=== PATIENT | female | born 1975 | race Caucasian/White ===

== ENCOUNTER 2020-03-27 09:07 | Outpatient (REF) | payer OTHER, SELFPAY ==
[2020-03-27 10:06] LABS: MANUAL DIFF FLAG NO
[2020-03-27 10:27] LABS: Alanine Aminotransferase 12 U/L (0-31); Albumin Level 4.1 g/dL (3.5-5.0); Alkaline Phosphatase 71 U/L (39-117); Anion Gap 11 (12-20); Aspartate Amino Transferase 14 U/L (5-31); Bilirubin Total 0.5 mg/dL (0.0-1.0); Blood Urea Nitrogen 11 mg/dL (9-16); Calcium 9.1 mg/dL (8.4-10.2); Carbon Dioxide 28 mmol/L (22-29); Chloride 103 mmol/L (96-108); Estimated Glomerular Filt Rate > 60; Glucose Fasting 87 mg/dL (60-99); Sodium 137 mmol/L (135-145); Total Protein 7.3 g/dL (6.5-8.0)
[2020-03-27 10:33] LABS: Basophils Absolute Auto 0.1 X10*3/uL (0.0-0.2); Basophils Percent Auto 0.9 % (0-2); Eosinophils Absolute Auto 0.4 X10*3/uL (0.0-0.4); Eosinophils Percent Auto 3.9 % (0-4); Hematocrit 43.3 % (37-47); Hemoglobin 14.1 g/dl (12.0-16.0); Imm Gran Abs Auto 0.06 X10*3/uL (0.00-0.03); Imm Gran Pct Auto 0.6 % (0.0-0.4); Lymphocytes Absolute Auto 3.3 X10*3/uL (1.2-4.9); Lymphocytes Percent Auto 31.8 % (20-40); Mean Corpuscular HGB Conc 32.6 g/dl (31.0-35.0); Mean Corpuscular Hemoglobin 31.1 pg (27.0-33.0); Mean Corpuscular Volume 95.6 fL (80-98); Mean Platelet Volume 10.7 fL (9.4-12.3); Monocytes Percent Auto 9.1 % (2-11); Neutrophils Absolute Auto 5.6 X10*3/uL (2.0-8.3); Neutrophils Percent Auto 53.7 % (45-73); Platelet Count 426 X10*3/uL (160-400); Red Blood Count 4.53 X10*6/uL (4.20-5.50); Red Cell Distribution Width 13.6 % (11.0-16.0); White Blood Count 10.5 X10*3/uL (4.8-10.8)
[2020-03-27 10:50] LABS: Thyroid Stimulating Hormone 26.03 uIU/mL (0.32-4.0)
== END 2020-03-27 09:08 | disposition home or self-care (01) ==
LOC: HO.LAB 09:07
PROVIDERS: PCP Internal Medicine; Visit Provider Internal Medicine
DX: E03.8 Other specified hypothyroidism (principal); F32.9 Major depressive disorder, single episode, unspecified; Z72.0 Tobacco use
CPT/HCPCS: 36415; 80053; 84443; 85025

== ENCOUNTER 2020-06-09 10:13 | Outpatient (REF) | payer OTHER, SELFPAY ==
[2020-06-09 11:28] LABS: Cholesterol 173 mg/dL; HDL Cholesterol 43 mg/dL; LDL Cholesterol Calculated 113 mg/dl; Triglycerides 88 mg/dL
== END 2020-06-09 10:14 | disposition home or self-care (01) ==
LOC: HO.LAB 10:13
PROVIDERS: PCP Internal Medicine; Visit Provider Internal Medicine
DX: Z00.01 Encounter for general adult medical examination with abnormal findings (principal); E03.8 Other specified hypothyroidism; F32.9 Major depressive disorder, single episode, unspecified; Z72.0 Tobacco use
CPT/HCPCS: 36415; 80061; 84443

== ENCOUNTER 2020-11-21 08:01 | Emergency (ER) | payer OTHER, SELFPAY ==
[2020-11-21 08:46] VITALS: BP 145/86; PULSE 103; RESP 14; TEMP 36.6; O2SAT 99; BMI 38.3
--- NOTE | 2020-11-21 09:59 | ED.SKABFB ---
HPI - Skin/Abscess/Foreign Bdy General Chief complaint: Skin/Abscess/Foreign Body Stated complaint: insect bite Time Seen by Provider: 11/21/20 09:57 Source: patient Mode of arrival: ambulatory Limitations: no limitations History of Present Illness HPI narrative: Patient presents to ED for insect bite. Patient states she was bit by insect and have painful area of redness on her arms, posterior aspect of right hand. right posterior back, and left calf. Patient does also having a fever. Patient unaware if it was tick. that bit her. Patient states having the symptoms for a week. Patient then states painful rash on inner lower lip. Patient also states sore throat. Patient states yesterday she tested negative for covid. Related Data Previous Rx's Medication Instructions Recorded cephalexin 500 mg capsule 500 mg PO QID 7 Days #28 cap 11/21/20 doxycycline hyclate 100 mg capsule 100 mg PO BID 10 Days #20 cap 11/21/20 lidocaine HCl 2 % mucosal solution 15 ml MUCOUS MEMBRANE Q6-8H PRN 2 11/21/20 Days #100 ml Allergies Allergy/AdvReac Type Severity Reaction Status Date / Time No Known Allergies Allergy Unverified 01/01/20 16:17 Review of Systems Review of Systems: Yes all other systems are reviewed and are negative Constitutional: Constitutional: Reports as per HPI, Reports no additional constitutional complaints and Reports fever(s) (Once) Eyes: Eyes: Reports as per HPI and Reports no additional eye complaints ENT: Reports system reviewed and no additional complaints, except as documented, Reports as per HPI, Reports mouth lesions and Reports sore throat Cardiovascular: Cardiovascular: Reports as per HPI and Reports no additional cardiovascular complaints Respiratory: Respiratory: Reports as per HPI and Reports no additional respiratory complaints Gastrointestinal: Gastrointestinal: Reports as per HPI and Reports no additional gastrointestinal complaints Musculoskeletal: Musculoskeletal: Reports no additional musculoskeletal complaints and Reports as per HPI Neurologic: Reports system reviewed and no additional complaints, except as documented and Reports as per HPI Psychiatric: Psychiatric: Reports no additional psychiatric complaints and Reports as per HPI [facility] Social History Social History Advance Directives: No Advance Directives Information Provided: No Physical Exam Vital Signs: Vital Signs: Last Vital Signs Temp 97.8 F 11/21/20 08:46 Pulse 103 H 11/21/20 08:46 Resp 14 11/21/20 08:46 BP 145/86 H 11/21/20 08:46 Pulse Ox 99 11/21/20 08:46 Body Mass Index 38.3 Const: General: cooperative, healthy appearing, comfortable, no acute distress, well developed, alert, awake and Physically active Orientation/consciousness: patient oriented x3 HENMT: Head: Yes normal to inspection, Yes No palpable skull fracture present, Yes normocephalic and Yes atraumatic Mouth/tongue images: 1. Positive for canker sores. Negative for lesions on the rest of the oral cavity. negative for crusted vescile lesions Throat: Yes posterior oropharynx normal, Yes tonsils normal and Yes uvula midline Eyes: General: appearance normal, both eyes and all related structures Neck: Neck: Yes normal visual inspection, Yes full ROM, Yes no lymphadenopathy, Yes no meningeal signs, Yes trachea midline, Yes supple and No tender Chest: Chest palpation & inspection: normal inspection of the chest and normal palpation of entire chest wall Resp: Effort & Inspection: normal respiratory effort and able to speak in complete sentences Auscultation: clear to auscultation bilaterally Cardio: Jugular venous distension: no JVD Heart sounds: S1 normal heart sound present and S2 normal heart sound present GI: Inspection: Yes normal to inspection and No abdominal wall ecchymosis Palpation (GI): Soft to palpation, not firm, nontender, no guarding and not rigid : General: No CVA tenderness and Yes no CVA tenderness Back/Spine/Pelvis: Back: no CVA tenderness, No CVA tenderness and No back tenderness Skin: Rashes: rashes noted Full body images: 1. Painful area of redness with blanching. 2. Area of erythema warmth and tenderness. Patient states earlier in the week area was more swollen and fluctuance, but swelling has significantly decreased. 3. Area of erythema/rash/tender on palpation. 4. Area of erythema with tenderness on palpation 5. Area of erythema with tenderness on palpation. Neuro: General: patient oriented x3, gait normal, no meningeal signs and CN's II-XI intact bilaterally Cranial nerves: Yes CN's II-XII intact bilaterally Extrem: Other: All extremities motor/neuro/vascular exam intact. General: Yes normal to inspection and Yes full ROM Psych: Appearance: grossly normal, well kempt and not disheveled Course Course Course Narrative: Patient states she was tested negative yesterday for COVID 19. Patient staying stroke pain will send strep. Unlikely HSV lesions but will send herpes swab. Reevaluation(s) Reevaluation #1: Patient definitely with the antibiotics. Rashes are not clear-cut erythema migrans, but some more circular so will do Lyme test. Will discharge on mouthwash. Time: 10:11 MDM - Skin/Abscess/Foreign Bdy MDM Narrative Medical decision making narrative: Cellulitis/Canker Sores Lab Data Labs: Lab Results 11/21/20 Range/Units 09:56 S. pyogenes GrpA NORRIS Negative (Negative) Discharge Plan Discharge Clinical Impression: Cellulitis, Canker sore Patient Disposition: Home, Self-Care Instructions: Cellulitis (ED), Canker Sores (ED) Additional Instructions: He have cellulitis caused by insect bite. He could use [id number] Benadryl for itchiness. He will need antibiotic for cellulitis. Oral exam indicate canker sores. You will be discharged with mouthwash. You also tested for Lyme disease. Return to the ED for worsening rash, chest pain, shortness of breath, swelling of lips, red streaks, intractable fever, weakness, chills, or any other concerning symptoms. Please follow-up with PCP Prescriptions: New cephalexin 500 mg capsule 500 mg PO QID 7 Days Qty: 28 RF: 0 doxycycline hyclate 100 mg capsule 100 mg PO BID 10 Days Qty: 20 RF: 0 lidocaine HCl 2 % solution 15 ml mucous membrane Q6-8H PRN (Reason: pain) 2 Days Qty: 100 RF: 0 Interventions: ED Discharge Assessment Last Done: 11/21/20 10:25 Discharge Date/Time: 11/21/20 10:25 Print Language: [place]uran
[2020-11-21 10:09] LABS: IDNOW Serial# 9DD0AD1C; Strep A Nucleic Acid Negative (Negative)
[2020-11-22 17:26] LABS: Lyme Abs Screen <0.90 index
== END 2020-11-21 10:25 | disposition home or self-care (01) ==
PROVIDERS: Physician Assistant; Emergency Provider Emergency Medicine Emergency Medical Services; PCP Internal Medicine
DX: K12.0 Recurrent oral aphthae (principal); L03.818 Cellulitis of other sites
CPT/HCPCS: 36415; 86617; 86618; 87255; 87651; 99282; 99283

== ENCOUNTER 2021-03-18 11:14 | Emergency (ER) | payer OTHER, SELFPAY ==
[2021-03-18 12:15] VITALS: BP 127/80; PULSE 83; RESP 18; TEMP 36.8; O2SAT 98; BMI 36.1
--- NOTE | 2021-03-18 12:31 | ED_ITS ---
HPI - Allergic Reaction General Chief complaint: Allergic Reaction Stated complaint: ALLERGIC REACTION TO MEDICATION Time Seen by Provider: 03/18/21 12:20 Source: patient Mode of arrival: ambulatory Limitations: no limitations History of Present Illness HPI narrative: 45-year-old female presenting to the ED with complaints of a rash that started on and worsened today. She reports that she is unsure if this is related to the new antibiotic Bactrim that she was prescribed on Sunday by her PCP for UTI. She reports that a few months ago she was bit by spiders in her house and had similar rash although it resolved. She reports that she was seen here and was not tested for Lyme at that time. She does not recall any tick bites that she is aware of. She denies any fevers, chills, dizziness, chest pain shortness of breath, palpitations, dyspnea on exertion, orthopnea, nausea/ vomiting/ diarrhea constipation, abdominal pain, recent travel or sick contacts or any other symptoms complaints or concerns at this time. MD complaint: allergic reaction and other ( Rash) Onset (ago): day(s) ( 2 days) Exposure: unknown Symptoms: rash Severity: moderate Treatment prior to arrival: none Previous Allergic Reaction History: none Related Data Previous Rx's Medication Instructions Recorded cephalexin 500 mg capsule 500 mg PO QID 7 Days #28 cap 11/21/20 doxycycline hyclate 100 mg capsule 100 mg PO BID 10 Days #20 cap 11/21/20 lidocaine HCl 2 % mucosal solution 15 ml MUCOUS MEMBRANE Q6-8H PRN 2 11/21/20 Days #100 ml doxycycline monohydrate 100 mg 100 mg PO BID 21 Days #42 cap 03/18/21 capsule Allergies Allergy/AdvReac Type Severity Reaction Status Date / Time No Known Allergies Allergy Verified 03/18/21 12:18 Review of Systems Review of Systems: Constitutional : No Fever, No Chills , no body aches, no recent illness Head/Face: No facial swelling, No facial redness ENT/Mouth : No oral/throat swelling, No Hoarseness, No Swallowing Difficulty Eyes: No Eye Pain, No Swelling, No Redness Cardiovascular : No Chest Pain, No SOB, No palpitations Respiratory : No Cough, No Sputum, No Wheezing, No Smoke Exposure, No Dyspnea Gastrointestinal : No Nausea, No Vomiting, No Diarrhea, No abdominal Pain Genitourinary : No Dysuria, No Urinary Frequency, No Hematuria Musculoskeletal : No joint pain, No Myalgias, No Joint Swelling Skin : No Skin Lesions, positive rash Neuro : No Weakness, No Numbness, No Headache, No dizziness, No tingling Psych : No Anxiety/Panic, No Depression Heme/Lymph: No Bruising, No Lymphadenopathy Endocrine : No Polyuria, No Polydipsia Denies changes in lotions or detergents. Denies drainage from rash. Denies any recent sick contacts or recent travel. patient reports starting Bactrim on Sunday this is a new antibiotic for her for UTI. No other new medications or changes in medications other than the Bactrim. Yes all other systems are reviewed and are negative PMFSH Past Medical History Attestation statement: The following information was validated with the patient. Medical History No known health problems Social History Social History Advance Directives: Yes Advance Directives Information Provided: Yes Advance Directives on File: No Patient : No Physical Exam Vital Signs: Vital Signs: Last Vital Signs Temp 98.3 F 03/18/21 12:15 Pulse 83 03/18/21 12:15 Resp 18 03/18/21 12:15 BP 127/80 03/18/21 12:15 Pulse Ox 98 03/18/21 12:15 BMI result Body Mass Index 36.1 vital signs have been reviewed as normal and appeared to be correct. Blood pressure normal. Heart rate normal. Respiration rate normal. Temperature normal. Oxygen saturation normal. Appearance: Alert. Oriented X3. No acute distress. Head: Normal external exam. Normocephalic. Atraumatic. Eyes: PERRLA. EOMI. Conjunctiva and sclera normal. Eyelids normal. ENT: Pharynx normal. Uvula midline. Moist mucous membranes. Neck: Normal inspection. Neck supple. FROM. No adenopathy. No meningeal signs. CVS: Normal heart rate and rhythm. Heart sound normal. Pulses normal throughout. No murmurs/rales/gallops. Respiratory: No respiratory distress. Painless inspiration. Breath sounds normal. No wheezes/rales/rhonchi noted. Chest nontender. No accessory muscle usage noted or decreased air movement noted. Abdomen: Soft and nontender. Bowel sounds normal in all 4 quadrants. No distention noted. No organomegaly noted. No visible injury noted. Back: Full range of motion noted. No rashes/lesion/induration/fluctuance or signs of infection noted. Skin: Skin warm and dry. Normal skin color. Normal skin turgor. Patient noted to have a bull's eye rash consistent with Lyme disease to the right flank area she also has scattered erythema migraines on the right arm. Otherwise no additional lesions/lacerations noted. Extremities: Extremities exhibit normal range of motion. Extremities nontender. Neuro: Oriented X 3. No motor deficit. No sensory deficit. Reflexes normal. Normal steady gait. No focal neuro deficits noted. Vascular: + radial pulses Normal cap refill. No cyanosis noted to upper extremity nails Course Course Course Narrative: 45-year-old female presenting to the ED with complaints of a rash that started on and worsened today. She reports that she is uns ure if this is related to the new antibiotic Bactrim that she was prescribed on Sunday by her PCP for UTI. She reports that a few months ago she was bit by spiders in her house and had similar rash although it resolved. She reports that she was seen here and was not tested for Lyme at that time. She does not recall any tick bites that she is aware of. When I arrived in the room I introduced myself and told the patient that I was told that she was on some type of antibiotic for possible UTI that she started on Sunday and I asked her to show me the rash and she immediately showed me her right flank which shows a bull's-eye rash and she has scattered erythema migraines to the right arm consistent with Lyme disease and I explained to her that that is most likely lyme disease. then she became very upset and very loud and started screaming that she does not have Lyme disease because when she came here a few months ago they told her she did not have Lyme and why would she have Lyme disease when she came in a few months ago for the same presentation and they did an even tested for Lyme and she was very upset about this. I tried to explain to her multiple times that a Lyme titer test does not immediately come out positive although she kept interrupting being very rude and screaming at me therefore I stepped out of the room and told her I would be back when she was calmer and respectful. I went back into the room with July the RN and she immediately started screaming at both myself in July again we were able to calm her down and explained to her that she was actually tested for Lyme I printed out the results and handed to the patient and I explained to her again that it takes a few months for the body to produce a positive results. Therefore at this time will test her for Lyme and DC home with treatment for Lyme and instructions to follow-up with her primary care provider. Patient understands agrees with this plan. MDM - Allergic Reaction Medical Records Attestation: I reviewed the patient's medical records. Lab Data Attestation: I reviewed the patient's lab results. Lab results narrative: Patient had a negative Lyme titer on 11/21/2020 that she thought she did not have. I printed out the results and handed to the patient. Discharge Plan Discharge Clinical Impression: Erythema migrans (Lyme disease) Patient Disposition: Home, Self-Care Instructions: Lyme Disease (ED), Tick Bite (ED) Additional Instructions: you have pending lab results if any are positive you will be contacted. Sometimes he will not come out positive for a Lyme titer until months after you have had the disease therefore this is why you might of had a false negative before and if you have a negative again you might have another false negative due to it usually takes 6 months or longer for you to produce a positive Lyme results. Return if any new or worsening symptoms. Follow up with her primary care provider. Take these antibiotics for 21 days even if you are feeling better. please stay away from the sun as doxycycline can cause skin medellin. Prescriptions: New doxycycline monohydrate 100 mg capsule 100 mg PO BID 21 Days Qty: 42 RF: 0 No Action cephalexin 500 mg capsule 500 mg PO QID 7 Days Qty: 28 RF: 0 doxycycline hyclate 100 mg capsule 100 mg PO BID 10 Days Qty: 20 RF: 0 lidocaine HCl 2 % solution 15 ml mucous membrane Q6-8H PRN (Reason: pain) 2 Days Qty: 100 RF: 0 Referrals: Karen Berrios MD [Primary Care Provider] - 2 days Stand Alone Forms: Work/School Release Print Language: [place]
--- NOTE | 2021-03-18 13:28 | PC.NURSE ---
PT HAS MULTIPLE BULLS EYE SPOTTY PATCHES ALL OVER BODY. SUSPICIOUS OF LYME DISEASE. PT HAD BLOOD DRAW AND WILL BE SENT HOME WITH ABX. PT WAS YELLING AT THIS RN AND LESLY LASSITER WHEN INFORMED OF CONDITION AND SYMPTOMS. PT WAS AGGRESSIVE AND SWEARING AT THIS RN AND LESLY LASSITER. THIS RN SPOKE QUIETLY TO PATIENT LETTING HER KNOW WE ARE HERE TO HELP AND WANT TO GIVE YOU THE BEST INFORMATION WE HAVE TO TREAT YOU. PT DID EVENTUALLY CALM DOWN AND IS AWAITING DISCHARGE PAPERWORK AT THIS TIME.
[2021-03-20 21:02] LABS: Lyme Abs Screen <0.90 index
[2021-03-21 18:46] LABS: A. Phagocytphilium DNA,RT-PCR NOT DETECTED (NOT DETECTED); Babesia Microti DNA, RT-PCR NOT DETECTED (NOT DETECTED); Borrelia Miyamotoi,DNA RT-PCR NOT DETECTED (NOT DETECTED); E.Chaffeensis DNA RT-PCR NOT DETECTED (NOT DETECTED); Lyme(Borrelia ssp)DNA RT-PCR NOT DETECTED (NOT DETECTED); Source-Tick borne disease NOT GIVEN
== END 2021-03-18 13:32 | disposition home or self-care (01) ==
PROVIDERS: Physician Assistant Medical; Emergency Provider Emergency Medicine; PCP Internal Medicine
DX: A69.20 Lyme disease, unspecified (principal)
CPT/HCPCS: 36415; 86617; 86618; 87798; 87801; 99283

== ENCOUNTER 2021-03-20 04:30 | Inpatient (IN) | payer OTHER, SELFPAY ==
[2021-03-20] VITALS (8 sets, daily range): BP systolic 111–145; BP diastolic 60–88; PULSE 77–120; RESP 16–20; TEMP 37.3–37.9; O2SAT 96–100; BMI 37.3
--- NOTE | ~2021-03-20 | XR_ITS ---
EXAMINATION: XR CHEST CLINICAL INFORMATION: Vasculitis COMPARISON: None TECHNIQUE: Frontal view of the chest was obtained. FINDINGS: No significant abnormality is noted involving the heart, lungs, mediastinum, bony thorax or soft tissues. XR/XR chest 1V IMPRESSION: Unremarkable examination.
--- NOTE | 2021-03-20 05:42 | PC.NURSE ---
PT REPORT HAVING RASH ON UPPER ARMS AND LOWER LEGS. SHE IS ALSO REPORTING DISCOMFORT IN HER MOUTH AND LOWER LIP.
--- NOTE | 2021-03-20 07:08 | ED_ITS ---
HPI - General Adult General Chief complaint: General Medical Stated complaint: lyme ?? sores on hand & lips Time Seen by Provider: 03/20/21 07:01 Source: patient Mode of arrival: ambulatory Limitations: no limitations History of Present Illness HPI narrative: pt presented with purpureal rash and mouth ulcer,she was disgnosed in ED 2 Days ago with Lyme and started on doxycicline,getting worse,difficult to eat,denties vomiting,chills has low grade of temp Onset (ago): day(s) (3) Location: mouth, upper extremity and lower extremity Radiation: non-radiation Severity: moderate Quality: burning Pain Consistency: constant Relieving factors: none Exacerbating factors: none Related Data Home Medications Medication Instructions Recorded Confirmed levothyroxine 112 mcg tablet 112 mcg PO DAILY 03/20/21 03/20/21 sulfamethoxazole 800 1 tab PO BID 03/20/21 03/20/21 mg-trimethoprim 160 mg tablet Previous Rx's Medication Instructions Recorded doxycycline hyclate 100 mg capsule 100 mg PO BID 10 Days #20 cap 11/21/20 Allergies Allergy/AdvReac Type Severity Reaction Status Date / Time No Known Allergies Allergy Verified 03/18/21 12:18 Review of Systems Review of Systems: Yes all other systems are reviewed and are negative ENT: Reports system reviewed and no additional complaints, except as documented Cardiovascular: Cardiovascular: Reports no additional cardiovascular complaints Neurologic: Reports system reviewed and no additional complaints, except as documented PMFSH Past Medical History Attestation statement: The following information was validated with the patient. Medical History No known health problems Social History Social History Patient Tobacco Use Status: Current everyday Tobacco user Use of substances other than those prescribed or required for medical reasons: No Advance Directives: No Advance Directives Information Provided: Yes Patient : No Physical Exam Vital Signs: Vital Signs: Last Vital Signs Temp 99.5 F 03/20/21 13:25 Pulse 86 03/20/21 13:25 Resp 16 03/20/21 13:25 BP 118/64 03/20/21 13:25 Pulse Ox 97 03/20/21 13:25 BMI result Body Mass Index 37.3 Const: General: cooperative and awake HENMT: Head: Yes normal to inspection Face and sinus: Yes normal facial exam and Yes ecchymosis Mouth: other (mouth ulcer) Skin: Other: Pt has multiple ecchymotic lesion ,rt arm/rt shoulder,rt flank,rt leg Course Reevaluation(s) Reevaluation #1: remain hemodinamically stable waiting for bed Medical Decision Making MDM Narrative Medical decision making narrative: pt ethiology of rash unclear meds reation is consideration,she is non toxic appearing she has leukocytosis and low grade of temp,Shubham Kali is in the differential but rash not tipical for Shubham Bass,medication reaction could be a possibility as well vasculitis. At this point will admit the pt for OBS hydrate /steroid Lab Data Result diagrams: 03/20/21 07:34 03/20/21 08:01 Labs: Lab Results 03/20/21 03/20/21 03/20/21 Range/Units 07:34 07:34 07:45 WBC 16.8 H (4.8-10.8) X10*3/uL RBC 4.30 (4.20-5.50) X10*6/uL Hgb 13.5 (12.0-16.0) g/dl Hct 40.0 (37.0-47.0) % MCV 93.0 (80.0-98.0) fL MCH 31.4 (27.0-33.0) pg MCHC 33.8 (31.0-35.0) g/dl RDW 13.2 (11.0-16.0) % Plt Count 365 (160-400) X10*3/uL MPV 9.8 (9.4-12.3) fL Immature Gran % (Auto) 0.5 H (0.0-0.4) % Neut % (Auto) 72.1 (45-73) % Lymph % (Auto) 14.0 L (20-40) % [place] % (Auto) 9.2 (2-11) % Eos % (Auto) 3.8 (0-4) % Baso % (Auto) 0.4 (0-2) % Lymph # (Auto) 2.3 (1.2-4.9) X10*3/uL [place] # (Auto) 1.5 H (0.1-1.2) X10*3/uL Eos # (Auto) 0.6 H (0.0-0.4) X10*3/uL Baso # (Auto) 0.1 (0.0-0.2) X10*3/uL Abs Immat Gran (auto) 0.08 H (0.00-0.03) X10*3/uL Absolute Neuts (auto) 12.1 H (2.0-8.3) x10*3/uL Absolute Nucleated RBC 0.000 (0.0-0.012) X10*3/uL Nucleated RBC % (auto) 0.0 (0.0-0.2) /100WBC Smear Tech's Comments VERIFIED ESR 16 (0-20) MM/HR PT (9.9-13.0) SEC INR (0.9-1.1) APTT (24.1-38.0) SEC Sodium (135-145) mmol/L Potassium (3.3-5.1) mmol/L Chloride (96-108) mmol/L Carbon Dioxide (22-29) mmol/L Anion Gap (12-20) BUN (9-16) mg/dL Creatinine (0.5-1.4) mg/dL Estim Creat Clear Calc Estimated GFR Random Glucose (60-115) mg/dL Lactic Acid (0.5-2.0) mmol/L Calcium (8.4-10.2) mg/dL Total Bilirubin (0.0-1.0) mg/dL AST (5-31) U/L ALT (0-31) U/L Alkaline Phosphatase (39-117) U/L C-Reactive Protein (< or = 0.50) mg/dL Total Protein (6.5-8.0) g/dL Albumin (3.5-5.0) g/dL Urine Color Urine Appearance Urine pH (5.0-8.0) Ur Specific [place] (1.005-1.025) Urine Protein (NEG-TRACE) MG/DL Urine Glucose (UA) (NEG) MG/DL Urine Ketones (NEG) MG/DL Urine Blood (NEG) Urine Nitrite (NEG) Ur Leukocyte Esterase (NEG) Urine RBC (0) /HPF Urine WBC (0-4) /HPF Ur Squamous Epith Cells /LPF Urine Bacteria /LPF Urine Test (NEGATIVE) COVID-19 (LANI) Negative (Negative) COVID-19 Clin Com See Note 03/20/21 03/20/21 03/20/21 Range/Units 08:01 08:01 09:17 WBC (4.8-10.8) X10*3/uL RBC (4.20-5.50) X10*6/uL Hgb (12.0-16.0) g/dl Hct (37.0-47.0) % MCV (80.0-98.0) fL MCH (27.0-33.0) pg MCHC (31.0-35.0) g/dl RDW (11.0-16.0) % Plt Count (160-400) X10*3/uL MPV (9.4-12.3) fL Immature Gran % (Auto) (0.0-0.4) % Neut % (Auto) (45-73) % Lymph % (Auto) (20-40) % [place] % (Auto) (2-11) % Eos % (Auto) (0-4) % Baso % (Auto) (0-2) % Lymph # (Auto) (1.2-4.9) X10*3/uL [place] # (Auto) (0.1-1.2) X10*3/uL Eos # (Auto) (0.0-0.4) X10*3/uL Baso # (Auto) (0.0-0.2) X10*3/uL Abs Immat Gran (auto) (0.00-0.03) X10*3/uL Absolute Neuts (auto) (2.0-8.3) x10*3/uL Absolute Nucleated RBC (0.0-0.012) X10*3/uL Nucleated RBC % (auto) (0.0-0.2) /100WBC Smear Tech's Comments ESR (0-20) MM/HR PT 12.9 (9.9-13.0) SEC INR 1.1 (0.9-1.1) APTT 34.1 (24.1-38.0) SEC Sodium 138 (135-145) mmol/L Potassium 4.0 (3.3-5.1) mmol/L Chloride 107 (96-108) mmol/L Carbon Dioxide 22 (22-29) mmol/L Anion Gap 13 (12-20) BUN 7 L (9-16) mg/dL Creatinine 0.81 (0.5-1.4) mg/dL Estim Creat Clear Calc 87.6 Estimated GFR > 60 Random Glucose 99 (60-115) mg/dL Lactic Acid 0.7 (0.5-2.0) mmol/L Calcium 8.8 (8.4-10.2) mg/dL Total Bilirubin 0.4 (0.0-1.0) mg/dL AST 21 D (5-31) U/L ALT 29 (0-31) U/L Alkaline Phosphatase 80 (39-117) U/L C-Reactive Protein 2.74 H (< or = 0.50) mg/dL Total Protein 7.1 (6.5-8.0) g/dL Albumin 3.9 (3.5-5.0) g/dL Urine Color Urine Appearance Urine pH (5.0-8.0) Ur Specific [place] (1.005-1.025) Urine Protein (NEG-TRACE) MG/DL Urine Glucose (UA) (NEG) MG/DL Urine Ketones (NEG) MG/DL Urine Blood (NEG) Urine Nitrite (NEG) Ur Leukocyte Esterase (NEG) Urine RBC (0) /HPF Urine WBC (0-4) /HPF Ur Squamous Epith Cells /LPF Urine Bacteria /LPF Urine Test (NEGATIVE) COVID-19 (LANI) (Negative) COVID-19 Clin Com 03/20/21 03/20/21 Range/Units 10:41 10:41 WBC (4.8-10.8) X10*3/uL RBC (4.20-5.50) X10*6/uL Hgb (12.0-16.0) g/dl Hct (37.0-47.0) % MCV (80.0-98.0) fL MCH (27.0-33.0) pg MCHC (31.0-35.0) g/dl RDW (11.0-16.0) % Plt Count (160-400) X10*3/uL MPV (9.4-12.3) fL Immature Gran % (Auto) (0.0-0.4) % Neut % (Auto) (45-73) % Lymph % (Auto) (20-40) % [place] % (Auto) (2-11) % Eos % (Auto) (0-4) % Baso % (Auto) (0-2) % Lymph # (Auto) (1.2-4.9) X10*3/uL [place] # (Auto) (0.1-1.2) X10*3/uL Eos # (Auto) (0.0-0.4) X10*3/uL Baso # (Auto) (0.0-0.2) X10*3/uL Abs Immat Gran (auto) (0.00-0.03) X10*3/uL Absolute Neuts (auto) (2.0-8.3) x10*3/uL Absolute Nucleated RBC (0.0-0.012) X10*3/uL Nucleated RBC % (auto) (0.0-0.2) /100WBC Smear Tech's Comments ESR (0-20) MM/HR PT (9.9-13.0) SEC INR (0.9-1.1) APTT (24.1-38.0) SEC Sodium (135-145) mmol/L Potassium (3.3-5.1) mmol/L Chloride (96-108) mmol/L Carbon Dioxide (22-29) mmol/L Anion Gap (12-20) BUN (9-16) mg/dL Creatinine (0.5-1.4) mg/dL Estim Creat Clear Calc Estimated GFR Random Glucose (60-115) mg/dL Lactic Acid (0.5-2.0) mmol/L Calcium (8.4-10.2) mg/dL Total Bilirubin (0.0-1.0) mg/dL AST (5-31) U/L ALT (0-31) U/L Alkaline Phosphatase (39-117) U/L C-Reactive Protein (< or = 0.50) mg/dL Total Protein (6.5-8.0) g/dL Albumin (3.5-5.0) g/dL Urine Color YELLOW Urine Appearance CLOUDY Urine pH 6.0 (5.0-8.0) Ur Specific [place] 1.010 (1.005-1.025) Urine Protein 1+ H (NEG-TRACE) MG/DL Urine Glucose (UA) NEG (NEG) MG/DL Urine Ketones 5 (NEG) MG/DL Urine Blood 3+ H (NEG) Urine Nitrite NEG (NEG) Ur Leukocyte Esterase 3+ H (NEG) Urine RBC 30-49 H (0) /HPF Urine WBC TNTC H (0-4) /HPF Ur Squamous Epith Cells 3+ /LPF Urine Bacteria 1+ /LPF Urine Test NEGATIVE (NEGATIVE) COVID-19 (LANI) (Negative) COVID-19 Clin Com Discharge Plan Discharge Clinical Impression: Medication reaction, Leukocytosis, Ecchymosis Patient Disposition: Admitted as Observation
--- NOTE | 2021-03-20 07:39 | PC.NURSE ---
pt alert and oriented, skin appropriate for ethnicity, respirations even and unlabored. pt reports for about one month has these bullseye/rashes all over her body, was started on abx but the rashes are getting worse, they appear with a center of the bullseye dark purple with a large [place] around the smaller that is a special crimes investigator in color, some appear like there about to start peeling, lower lip very swollen with sores and the inside of the mouth also covered in sores, pain full to swallow. sinus tach on the monitor.
[2021-03-20 07:40] LABS: Basophils Absolute Auto 0.1 X10*3/uL (0.0-0.2); Basophils Percent Auto 0.4 % (0-2); Eosinophils Absolute Auto 0.6 X10*3/uL (0.0-0.4); Eosinophils Percent Auto 3.8 % (0-4); Hemoglobin 13.5 g/dl (12.0-16.0); Imm Gran Abs Auto 0.08 X10*3/uL (0.00-0.03); Imm Gran Pct Auto 0.5 % (0.0-0.4); Lymphocytes Absolute Auto 2.3 X10*3/uL (1.2-4.9); MANUAL DIFF FLAG SCAN; Mean Corpuscular HGB Conc 33.8 g/dl (31.0-35.0); Mean Corpuscular Hemoglobin 31.4 pg (27.0-33.0); Mean Platelet Volume 9.8 fL (9.4-12.3); Monocytes Absolute Auto 1.5 X10*3/uL (0.1-1.2); Monocytes Percent Auto 9.2 % (2-11); Neutrophils Absolute Auto 12.1 x10*3/uL (2.0-8.3); Neutrophils Percent Auto 72.1 % (45-73); Platelet Count 365 X10*3/uL (160-400); Red Cell Distribution Width 13.2 % (11.0-16.0); SCAN SMEAR FLAG 1; White Blood Count 16.8 X10*3/uL (4.8-10.8)
[2021-03-20 08:01] LABS: SLIDE REVIEW VERIFIED
[2021-03-20] MEDS: Acetaminophen 325 MG TABLET 650 MG PO ×2 (08:10→21:31)
[2021-03-20 08:15] LABS: COVID-19 Test Negative (Negative)
[2021-03-20 08:17] LABS: Lactic Acid 0.7 mmol/L (0.5-2.0)
[2021-03-20 08:23] LABS: Erythrocyte Sedimentation Rate 16 MM/HR (0-20)
[2021-03-20 08:27] LABS: Alanine Aminotransferase 29 U/L (0-31); Albumin Level 3.9 g/dL (3.5-5.0); Alkaline Phosphatase 80 U/L (39-117); Anion Gap 13 (12-20); Aspartate Amino Transferase 21 U/L (5-31); Bilirubin Total 0.4 mg/dL (0.0-1.0); Blood Urea Nitrogen 7 mg/dL (9-16); C Reactive Protein 2.74 mg/dL (< or = 0.50); Calcium 8.8 mg/dL (8.4-10.2); Carbon Dioxide 22 mmol/L (22-29); Chloride 107 mmol/L (96-108); Creatinine Clr Calc Pharmacy 87.6; Estimated Glomerular Filt Rate > 60; Glucose Random 99 mg/dL (60-115); Sodium 138 mmol/L (135-145); Total Protein 7.1 g/dL (6.5-8.0)
[2021-03-20] MEDS: 0.9 % Sodium Chloride 1,000 ML 999 ML IVCONT ×2 (09:07→10:26)
[2021-03-20 09:27] LABS: INTERNATIONAL NORM RATIO 1.1 (0.9-1.1); Prothrombin Time 12.9 SEC (9.9-13.0)
[2021-03-20 09:30] LABS: Partial Thromboplastin Time 34.1 SEC (24.1-38.0)
--- NOTE | 2021-03-20 10:36 | PC.NURSE ---
@ 1032 DR QUIGLEY REQUEST CALL TO [facility] PT [place] LINE [phone] SHAHRIAR ANSWERS, TAKES PT INFO AND CALL BACK NUMBER THEN ASKS TO SPEAK WITH DR QUIGLEY
[2021-03-20 10:49] LABS: Appearance Urine CLOUDY; Color Urine YELLOW; Glucose Urine UA NEG (NEG); Leukocyte Esterase Urine 3+ (NEG); Nitrite Urine NEG (NEG); UACC Culture Trigger YES; Urine Blood 3+ (NEG); Urine Ketones 5 MG/DL (NEG); Urine Protein 1+ MG/DL (NEG-TRACE)
[2021-03-20 10:50] LABS: UPreg QC Valid YES; Urine Pregnancy NEGATIVE (NEGATIVE)
[2021-03-20 10:55] LABS: RBC Urine 30-49 /HPF (0); Squamous Epithelial Cell Urine 3+ /LPF; UACC CULT YES; WBC Urine TNTC /HPF (0-4)
[2021-03-20 10:56] LABS: Bacteria Urine 1+ /LPF
[2021-03-20] MEDS: Morphine Sulfate 4 MG/ML CARTRIDGE 3 MG IVPUSH (11:03)
[2021-03-20] MEDS: methylPREDNISolone Sod Succ 125 MG/2 ML VIAL IVPUSH (11:03)
--- NOTE | 2021-03-20 11:13 | PC.NURSE ---
@ 11:13AM DR QUIGLEY REQUEST CALL TO [facility] ACCESS LINE FOR DERMATOLOGY CONSULT FOR THIS PT RAJVI ANSWERS AND REQUESTS TO SPEAK WITH DR DANN QUIGLEY TAKES OVER CALL RIGHT AWAY
--- NOTE | 2021-03-20 11:22 | PC.NURSE ---
@11:20AM [facility] OF [facility] ACCESS LINE CALLS US BACK TO SAY THE WEATHERIZATION TECHNICIAN WILL NOT TAKE THE CALL THEY WILL NOT BE THE ONES FOLLOWING UP WITH THIS PT ON D/C DR QUIGLEY AWARE
--- NOTE | 2021-03-20 11:24 | PHA.MEDREC ---
Pharmacy Consult ? Medication Reconciliation Pharmacy has completed the medication reconciliation. Patient is on Bactrim for a UTI and Doxycyline for a tick bite. Reports she no longer takes sertraline. Rosa Carrero, PharmD
--- NOTE | 2021-03-20 12:08 | PC.NURSE ---
pt reports feeling a little better, the sores in mouth are starting to feel better, pain at 7/10
--- NOTE | 2021-03-20 12:35 | P.HPHOSP_ITS ---
History of Present Illness Date of Service: 03/20/21 Chief Complaint: Skin rash, fever 45 years old lady with PMH of hypothyroidism who presents to the hospital complaining of skin rash and fever for the last 2 days. The patient presented to the ER on Sunday after she noticed raised areas of skin rash was discoloration multiple areas in her body. Those rashes were associated with low-grade fever, itching and tenderness. She reports taking Bactrim for a urine infection before the rash appeared. She was prescribed antibiotic of doxycycline in the emergency and discharged home. She came back in this morning with worsening pain, erythema surrounding the rashes associated with lip swelling and tongue pain. Blood test did not show any abnormal values Admitted for observation and evaluation. Review of Systems Review of Systems: Reporting low-grade fever with no reported weakness No chest pain, palpitation No shortness of breath or coughing No abdominal pain, nausea or vomiting No urinary symptoms Multiple areas of rash in her body PMFSH Medical History No known health problems Cognitive capacity: Hypothyroidism Pertinent family history: HTN in mother Social History Patient Tobacco Use Status: Current everyday Tobacco user Use of substances other than those prescribed or required for medical reasons: No Advance Directives: No Advance Directives Information Provided: Yes Patient : No Meds Allergies Allergy/AdvReac Type Severity Reaction Status Date / Time No Known Allergies Allergy Verified 03/18/21 12:18 Active Medications: Current Medications Acetaminophen (Acetaminophen 325 Mg Tablet) 650 mg PO Q6H PRN PRN Reason: Pain, Mild (Pain Scale 1-3) Al Hydroxide/Mg Hydroxide (Magnesium Hydrox/Alum Hydrox 30 Ml Oral.Susp) 30 ml PO Q4H PRN PRN Reason: Heartburn/Nausea Diphenhydramine HCl (Diphenhydramine Hcl 50 Mg/Ml Vial) 25 mg IVPUSH ONCE ONE Stop: 03/20/21 12:29 Diphenhydramine HCl (Diphenhydramine Hcl 50 Mg/Ml Vial) 25 mg IVPUSH Q4H PRN PRN Reason: Itching Enoxaparin Sodium (Enoxaparin Sodium 40 Mg/0.4 Ml Syringe) 40 mg SUBCUT Q24H ADDIE Sodium Chloride (Ns) 1,000 mls @ 100 mls/hr IVCONT .Q10H ADDIE Stop: 03/20/21 22:00 Levothyroxine Sodium (Levothyroxine Sodium 112 Mcg Tablet) 112 mcg PO DAILY [facility] Lidocaine/Diphenhydr/Alum/Mg/Simeth (Mag&Al/Sim/Diphenhyd/Lidocaine 10 Ml Oral.Susp) 10 ml PO Q6H ADDIE; Protocol Loratadine (Loratadine 10 Mg Tablet) 10 mg PO DAILY [facility] Ondansetron HCl (Ondansetron Hcl 4 Mg/2 Ml Vial) 4 mg IVPUSH Q8H PRN PRN Reason: Nausea and Vomiting Pharmacy Consult (Consult Rx Perform Med Rec) 1 each MISCELLANE ONCE PRN PRN Reason: Consult order Prednisone (Prednisone 20 Mg Tablet) 20 mg PO DAILY [facility] Sodium Chloride (0.9 % Sodium Chloride Flush 3 Ml Syringe) 3 ml IVFLUSH QSHIFT [facility] Home Medications Medication Instructions Recorded Confirmed Last Taken Type levothyroxine 112 mcg tablet 112 mcg PO DAILY 03/20/21 03/20/21 03/19/21 History sulfamethoxazole 800 1 tab PO BID 03/20/21 03/20/21 03/19/21 History mg-trimethoprim 160 mg tablet Physical Exam Vital Signs and Narrative: Vital Signs: Last Vital Signs Temp 99.5 F 03/20/21 10:37 Pulse 81 03/20/21 12:09 Resp 18 03/20/21 12:09 BP 111/67 03/20/21 12:09 Pulse Ox 97 03/20/21 12:09 BMI result Body Mass Index 37.3 Const: Other: Constitutional : Alert, oriented, not in distress Neck : Normal inspection, Supple Cardiovascular : RRR, S1 S2, no lower extremity edema Respiratory : Good bilateral air entry, no crackles, wheezes or rhonchi Gastrointestinal: soft, lax, Normal bowel sounds, Non tender Skin : Warm, Dry, multiple areas of raised skin Plaques, erythema and mild tenderness noted with superficial scaling in shoulder, wrist, back and left leg Neurological : Alert & oriented x3, No focal deficit Results Labs CBC and Chem 7: 03/20/21 07:34 03/20/21 08:01 Labs: Laboratory Results - last 24 hr 03/20/21 03/20/21 03/20/21 07:34 07:34 07:45 MCV 93.0 MCH 31.4 MCHC 33.8 RDW 13.2 Plt Count 365 MPV 9.8 Immature Gran % (Auto) 0.5 H Neut % (Auto) 72.1 Lymph % (Auto) 14.0 L [place] % (Auto) 9.2 Eos % (Auto) 3.8 Baso % (Auto) 0.4 Lymph # (Auto) 2.3 [place] # (Auto) 1.5 H Eos # (Auto) 0.6 H Baso # (Auto) 0.1 Abs Immat Gran (auto) 0.08 H Absolute Neuts (auto) 12.1 H Absolute Nucleated RBC 0.000 Nucleated RBC % (auto) 0.0 Smear Tech's Comments VERIFIED ESR 16 PT INR APTT Anion Gap Estim Creat Clear Calc Estimated GFR Random Glucose Lactic Acid Calcium Total Bilirubin AST ALT Alkaline Phosphatase C-Reactive Protein Total Protein Albumin Urine Color Urine Appearance Urine pH Ur Specific [place] Urine Protein Urine Glucose (UA) Urine Ketones Urine Blood Urine Nitrite Ur Leukocyte Esterase Urine RBC Urine WBC Ur Squamous Epith Cells Urine Bacteria Urine Test COVID-19 (LANI) Negative COVID-19 Clin Com See Note 03/20/21 03/20/21 03/20/21 08:01 08:01 09:17 MCV MCH MCHC RDW Plt Count MPV Immature Gran % (Auto) Neut % (Auto) Lymph % (Auto) [place] % (Auto) Eos % (Auto) Baso % (Auto) Lymph # (Auto) [place] # (Auto) Eos # (Auto) Baso # (Auto) Abs Immat Gran (auto) Absolute Neuts (auto) Absolute Nucleated RBC Nucleated RBC % (auto) Smear Tech's Comments ESR PT 12.9 INR 1.1 APTT 34.1 Anion Gap 13 Estim Creat Clear Calc 87.6 Estimated GFR > 60 Random Glucose 99 Lactic Acid 0.7 Calcium 8.8 Total Bilirubin 0.4 AST 21 D ALT 29 Alkaline Phosphatase 80 C-Reactive Protein 2.74 H Total Protein 7.1 Albumin 3.9 Urine Color Urine Appearance Urine pH Ur Specific [place] Urine Protein Urine Glucose (UA) Urine Ketones Urine Blood Urine Nitrite Ur Leukocyte Esterase Urine RBC Urine WBC Ur Squamous Epith Cells Urine Bacteria Urine Test COVID-19 (LANI) COVID-19 Clin Com 03/20/21 03/20/21 10:41 10:41 MCV MCH MCHC RDW Plt Count MPV Immature Gran % (Auto) Neut % (Auto) Lymph % (Auto) [place] % (Auto) Eos % (Auto) Baso % (Auto) Lymph # (Auto) [place] # (Auto) Eos # (Auto) Baso # (Auto) Abs Immat Gran (auto) Absolute Neuts (auto) Absolute Nucleated RBC Nucleated RBC % (auto) Smear Tech's Comments ESR PT INR APTT Anion Gap Estim Creat Clear Calc Estimated GFR Random Glucose Lactic Acid Calcium Total Bilirubin AST ALT Alkaline Phosphatase C-Reactive Protein Total Protein Albumin Urine Color YELLOW Urine Appearance CLOUDY Urine pH 6.0 Ur Specific [place] 1.010 Urine Protein 1+ H Urine Glucose (UA) NEG Urine Ketones 5 Urine Blood 3+ H Urine Nitrite NEG Ur Leukocyte Esterase 3+ H Urine RBC 30-49 H Urine WBC TNTC H Ur Squamous Epith Cells 3+ Urine Bacteria 1+ Urine Test NEGATIVE COVID-19 (LANI) COVID-19 Clin Com Assessment and Plan (1) Leukocytosis: Status: Acute (2) Skin rash: Status: Acute (3) Swollen lip: Status: Acute (4) Medication reaction: Status: Acute 45 years old lady with PMH of hypothyroidism who presents to the hospital complaining of skin rash and fever for the last 2 days. Leukocytosis Could be reactive or secondary to UTI Will monitor for now Hold on further antibiotics with possible allergic skin reaction under final urine culture Skin rash Recurrent, similar distribution to last November Could be more serious Shubham Kali over others autoimmune diseases Treat as allergic reaction with steroids, H1 blockers Benadryl p.r.n. To get ID evaluation Tongue ulcers Secondary to the reaction, to use magic mouthwash continue to monitor Hypothyroid continue levothyroxine DVT PPX Lovenox Quality Stroke Does the patient have a stroke diagnosis?: No VTE Prior VTE?: No VTE Risk Level:: Medical - moderate - high VTE Device Contraindication: Treatment Not Indicated VTE Drug Contraindication: N/A - Med Ordered
[2021-03-20] MEDS: 0.9 % Sodium Chloride 1,000 ML 100 ML IVCONT (12:58)
[2021-03-20] MEDS: Enoxaparin Sodium 40 MG/0.4 ML SYRINGE SUBCUT (12:58)
[2021-03-20] MEDS: diphenhydrAMINE HCL 50 MG/ML VIAL 25 MG IVPUSH ×2 (12:58→21:32)
[2021-03-20] MEDS: Loratadine 10 MG TABLET PO (12:59)
[2021-03-20] MEDS: Mag&Al/Sim/Diphenhyd/Lidocaine 10 ML ORAL.SUSP PO ×2 (13:41→18:58)
[2021-03-20] MEDS: 0.9 % Sodium Chloride Flush 3 ML SYRINGE IVFLUSH (15:50)
[2021-03-20] MEDS: methylPREDNISolone Sod Succ 40 MG/ML VIAL 20 MG IVPUSH (21:27)
[2021-03-21] VITALS (9 sets, daily range): BP systolic 99–140; BP diastolic 60–87; PULSE 69–100; RESP 16–20; TEMP 36.2–36.9; O2SAT 96–100
[2021-03-21] MEDS: Mag&Al/Sim/Diphenhyd/Lidocaine 10 ML ORAL.SUSP PO ×4 (01:35→17:36)
[2021-03-21 06:10] LABS: MANUAL DIFF FLAG NO
[2021-03-21 06:33] LABS: Anion Gap 12 (12-20); Blood Urea Nitrogen 7 mg/dL (9-16); Calcium 9.2 mg/dL (8.4-10.2); Carbon Dioxide 22 mmol/L (22-29); Chloride 109 mmol/L (96-108); Creatinine Clr Calc Pharmacy 107.4; Estimated Glomerular Filt Rate > 60; Glucose Random 117 mg/dL (60-115); Potassium 4.4 mmol/L (3.3-5.1); Sodium 139 mmol/L (135-145)
[2021-03-21 06:34] LABS: Basophils Percent Auto 0.1 % (0-2); Hematocrit 38.9 % (37.0-47.0); Hemoglobin 12.8 g/dl (12.0-16.0); Imm Gran Abs Auto 0.08 X10*3/uL (0.00-0.03); Imm Gran Pct Auto 0.6 % (0.0-0.4); Lymphocytes Percent Auto 14.2 % (20-40); Mean Corpuscular HGB Conc 32.9 g/dl (31.0-35.0); Mean Corpuscular Hemoglobin 30.8 pg (27.0-33.0); Mean Corpuscular Volume 93.7 fL (80.0-98.0); Monocytes Absolute Auto 0.9 X10*3/uL (0.1-1.2); Monocytes Percent Auto 6.2 % (2-11); Neutrophils Absolute Auto 11.3 x10*3/uL (2.0-8.3); Neutrophils Percent Auto 78.9 % (45-73); Platelet Count 372 X10*3/uL (160-400); Red Blood Count 4.15 X10*6/uL (4.20-5.50); Red Cell Distribution Width 13.2 % (11.0-16.0); White Blood Count 14.3 X10*3/uL (4.8-10.8)
--- NOTE | 2021-03-21 06:42 | PC.NURSE ---
AWAITING 6AM MEDICATION TO BE DELIVERED BY PHARMACY.
[2021-03-21] MEDS: Levothyroxine Sodium 112 MCG TABLET PO (07:55)
[2021-03-21] MEDS: 0.9 % Sodium Chloride Flush 3 ML SYRINGE IVFLUSH ×2 (07:56→08:57)
[2021-03-21] MEDS: Acetaminophen 325 MG TABLET 650 MG PO (08:00)
[2021-03-21] MEDS: Dextrose 5 % and 0.9 % NaCl 1,000 ML 100 ML IVCONT ×2 (08:55→21:47)
[2021-03-21] MEDS: Ketorolac Tromethamine 30 MG/ML VIAL 15 MG IVPUSH ×2 (08:56→17:35)
[2021-03-21] MEDS: Loratadine 10 MG TABLET PO (08:56)
[2021-03-21] MEDS: diphenhydrAMINE HCL 50 MG/ML VIAL 25 MG IVPUSH (08:56)
[2021-03-21] MEDS: ondansetron HCL 4 MG/2 ML VIAL IVPUSH (08:56)
[2021-03-21] MEDS: methylPREDNISolone Sod Succ 40 MG/ML VIAL 20 MG IVPUSH ×2 (08:57→21:06)
--- NOTE | 2021-03-21 09:10 | PC.NURSE ---
dr. magana at bedside, pt aware of plan of care. pt is admitted to hosp.
--- NOTE | 2021-03-21 09:53 | HO.PM.IMPN ---
Subjective Subjective Date of Service: 03/21/21 Interval History: The patient was seen and evaluated this morning Laying in bed, still complaining of mouth pain and skin lesions Had low grade fever overnight No reported other overnight events Systemic review: low grade fever, chills but denies weakness No chest pain, palpitation No shortness of breath or coughing No abdominal pain, nausea or vomiting No urinary symptoms Still complaining of pain at the skin lesions Physical Exam Vital Signs: Vital Signs: Last Vital Signs Temp 97.9 F 03/21/21 08:38 Pulse 80 03/21/21 08:38 Resp 18 03/21/21 08:38 BP 127/73 03/21/21 08:38 Pulse Ox 99 03/21/21 08:38 BMI result Body Mass Index 37.3 Const: Other: Constitutional : Alert, oriented, not in distress Neck : Normal inspection, Supple Cardiovascular : RRR, S1 S2, no lower extremity edema Respiratory : Good bilateral air entry, no crackles, wheezes or rhonchi Gastrointestinal: soft, lax, Normal bowel sounds, Non tender Skin : Warm, Dry, multiple areas of raised skin whales erythema and mild tenderness noted, wrist, back and left leg Neurological : Alert & oriented x3, No focal deficit Objective Data Active Medications Acetaminophen (Acetaminophen 325 Mg Tablet) 650 mg PO Q6H PRN PRN Reason: Pain, Mild (Pain Scale 1-3) Last Admin: 03/21/21 08:00 Dose: 650 mg Documented by: MARTÍN Al Hydroxide/Mg Hydroxide (Magnesium Hydrox/Alum Hydrox 30 Ml Oral.Susp) 30 ml PO Q4H PRN PRN Reason: Heartburn/Nausea Diphenhydramine HCl (Diphenhydramine Hcl 50 Mg/Ml Vial) 25 mg IVPUSH Q4H PRN PRN Reason: Itching Last Admin: 03/21/21 08:56 Dose: 25 mg Documented by: MARTÍN Enoxaparin Sodium (Enoxaparin Sodium 40 Mg/0.4 Ml Syringe) 40 mg SUBCUT Q24H [facility] Last Admin: 03/20/21 12:58 Dose: 40 mg Documented by: VAHID Dextrose/Sodium Chloride (D5ns) 1,000 mls @ 100 mls/hr IVCONT .Q10H [facility] Last Admin: 03/21/21 08:55 Dose: 100 mls/hr Documented by: MARTÍN Ketorolac Tromethamine (Ketorolac Tromethamine 30 Mg/Ml Vial) 15 mg IVPUSH Q6H PRN PRN Reason: Pain, Severe (Pain Scale 7-10) Last Admin: 03/21/21 08:56 Dose: 15 mg Documented by: MARTÍN Levothyroxine Sodium (Levothyroxine Sodium 112 Mcg Tablet) 112 mcg PO DAILY@0600 [facility] Last Admin: 03/21/21 07:55 Dose: 112 mcg Documented by: MARTÍN Lidocaine/Diphenhydr/Alum/Mg/Simeth (Mag&Al/Sim/Diphenhyd/Lidocaine 10 Ml Oral.Susp) 10 ml PO Q6H [facility]; Protocol Last Admin: 03/21/21 08:56 Dose: 10 ml Documented by: MARTÍN Loratadine (Loratadine 10 Mg Tablet) 10 mg PO DAILY [facility] Last Admin: 03/21/21 08:56 Dose: 10 mg Documented by: MARTÍN Methylprednisolone Sodium Succinate (Methylprednisolone Sod Succ 40 Mg/Ml Vial) 20 mg IVPUSH Q12H [facility] Last Admin: 03/21/21 08:57 Dose: 20 mg Documented by: MARTÍN Ondansetron HCl (Ondansetron Hcl 4 Mg/2 Ml Vial) 4 mg IVPUSH Q8H PRN PRN Reason: Nausea and Vomiting Last Admin: 03/21/21 08:56 Dose: 4 mg Documented by: MARTÍN Pharmacy Consult (Consult Rx Perform Med Rec) 1 each MISCELLANE ONCE PRN PRN Reason: Consult order Sodium Chloride (0.9 % Sodium Chloride Flush 3 Ml Syringe) 3 ml IVFLUSH QSHIFT [facility] Last Admin: 03/21/21 07:56 Dose: 3 ml Documented by: MARTÍN Labs CBC & Chem 7: 03/21/21 05:49 03/21/21 05:49 Labs: Laboratory Results - last 24 hr 03/20/21 03/20/21 03/21/21 10:41 10:41 05:49 MCV 93.7 MCH 30.8 MCHC 32.9 RDW 13.2 Plt Count 372 MPV 10.0 Immature Gran % (Auto) 0.6 H Neut % (Auto) 78.9 H Lymph % (Auto) 14.2 L [place] % (Auto) 6.2 Eos % (Auto) 0.0 Baso % (Auto) 0.1 Lymph # (Auto) 2.0 [place] # (Auto) 0.9 Eos # (Auto) 0.0 Baso # (Auto) 0.0 Abs Immat Gran (auto) 0.08 H Absolute Neuts (auto) 11.3 H Absolute Nucleated RBC 0.000 Nucleated RBC % (auto) 0.0 Anion Gap Estim Creat Clear Calc Estimated GFR Random Glucose Calcium Urine Color YELLOW Urine Appearance CLOUDY Urine pH 6.0 Ur Specific [place] 1.010 Urine Protein 1+ H Urine Glucose (UA) NEG Urine Ketones 5 Urine Blood 3+ H Urine Nitrite NEG Ur Leukocyte Esterase 3+ H Urine RBC 30-49 H Urine WBC TNTC H Ur Squamous Epith Cells 3+ Urine Bacteria 1+ Urine Test NEGATIVE 03/21/21 05:49 MCV MCH MCHC RDW Plt Count MPV Immature Gran % (Auto) Neut % (Auto) Lymph % (Auto) [place] % (Auto) Eos % (Auto) Baso % (Auto) Lymph # (Auto) [place] # (Auto) Eos # (Auto) Baso # (Auto) Abs Immat Gran (auto) Absolute Neuts (auto) Absolute Nucleated RBC Nucleated RBC % (auto) Anion Gap 12 Estim Creat Clear Calc 107.4 Estimated GFR > 60 Random Glucose 117 H Calcium 9.2 Urine Color Urine Appearance Urine pH Ur Specific [place] Urine Protein Urine Glucose (UA) Urine Ketones Urine Blood Urine Nitrite Ur Leukocyte Esterase Urine RBC Urine WBC Ur Squamous Epith Cells Urine Bacteria Urine Test Microbiology Microbiology Results: Microbiology 03/20/21 07:41 Blood Culture - Preliminary Blood - Venous No growth after 24 hours. 03/20/21 07:34 Blood Culture - Preliminary Blood - Venous No growth after 24 hours. Assessment and Plan (1) UTI (urinary tract infection): Status: Acute (2) Leukocytosis: Status: Acute (3) Skin rash: Status: Acute (4) Swollen lip: Status: Acute Assessment and Plan: 45 years old lady with PMH of hypothyroidism who presents to the hospital complaining of skin rash and fever for the last 2 days. Leukocytosis down to 14 Could be reactive or secondary to UTI started on on Abx UTI Pending U.Cx Start Ceftriaxone Skin rash Recurrent, similar distribution to last November stable, no drainage noted Treat as allergic reaction with steroids, H1 blockers Benadryl p.r.n. Started Doxycycline for possible infx To get ID evaluation mouth pain, Tongue ulcers Secondary to the reaction, to use magic mouthwash continue to monitor Hypothyroid continue levothyroxine DVT PPX Lovenox Quality Stroke Does the patient have a stroke diagnosis?: No VTE Prior VTE?: No VTE Risk Level:: Medical - moderate - high VTE Device Contraindication: Treatment Not Indicated VTE Drug Contraindication: N/A - Med Ordered
--- NOTE | 2021-03-21 10:19 | MHC.CM.PN ---
EMR REVIEWED, PT ADMITTED W/? OF LYME DISEASE, PT RECEIVING IV DOXYCYLCLINE, CM MET W/PT WHO IS A&OX4, WORKS [employer] FOR [employer], PT LIVES W/3 CHILDREN, IS INDEPENDENT W/ALL CARE, NO DME OR HOME SERVICES, PT VERIFIES HER PCP BENEDICT RIOS, PT RECEIVED PFIZER VACCINE AND IS AWAITING BOOSTER FROM WORK, PT PROVIDED W/EDUCATION ON HCP AND DECLINES AT THIS TIME. D/C PLAN: HOME SELF-CARE, CAR IN LOT AND PT WILL SELF-TRANSPORT
[2021-03-21] MEDS: Enoxaparin Sodium 40 MG/0.4 ML SYRINGE SUBCUT (13:24)
[2021-03-21] MEDS: cefTRIAXone sodium 1 GM in 0.9 % Sodium Chloride 50 ML IV (13:24)
--- NOTE | 2021-03-21 13:55 | PC.NURSE ---
rn to rn report given to tutu mcgee aware of plan of care for transfer to room 345.
[2021-03-21] MEDS: Doxycycline Hyclate 100 MG in 0.9 % Sodium Chloride 250 ML 166.67 MG IV (15:31)
--- NOTE | 2021-03-21 21:22 | W.PM.IDCN ---
History of Present Illness Data of Consult Service Date: 03/21/21 Requesting physician: Fuad Rao Primary Care Provider: Unknown Physician HPI Reason for consult: skin lesions She presents with weakness and purple areas of brusing on hands and back and flank,one cm They are present for last week and initially she started with dysuria and took Bactrim She felt worse and there are five areas around body ecchymotic She was started on Doxycycline after lesions started Review of Systems Review of Systems: Yes all other systems are reviewed and are negative [facility] Past Medical History Medical History Hypothyroidism No known health problems Family History Family History (Updated 03/23/21 @ 13:15 by Obi Kiryb MD) Sister SLE (systemic lupus erythematosus related syndrome) Family history: reviewed and not pertinent Social History Social History Household Members: Children Housing: House Do you presently have visiting nurse or other home services: No Patient Tobacco Use Status: Current everyday Tobacco user Tobacco use type: Cigarette Years Smoked: 2 service: No Current occupational status: employed Meds Allergies Allergy/AdvReac Type Severity Reaction Status Date / Time No Known Allergies Allergy Verified 03/18/21 12:18 Active Medications: Current Medications Acetaminophen (Acetaminophen 325 Mg Tablet) 650 mg PO Q6H PRN PRN Reason: Pain, Mild (Pain Scale 1-3) Last Admin: 03/21/21 08:00 Dose: 650 mg Documented by: Al Hydroxide/Mg Hydroxide (Magnesium Hydrox/Alum Hydrox 30 Ml Oral.Susp) 30 ml PO Q4H PRN PRN Reason: Heartburn/Nausea Diphenhydramine HCl (Diphenhydramine Hcl 50 Mg/Ml Vial) 25 mg IVPUSH Q4H PRN PRN Reason: Itching Last Admin: 03/21/21 08:56 Dose: 25 mg Documented by: Enoxaparin Sodium (Enoxaparin Sodium 40 Mg/0.4 Ml Syringe) 40 mg SUBCUT Q24H [facility] Last Admin: 03/21/21 13:24 Dose: 40 mg Documented by: Dextrose/Sodium Chloride (D5ns) 1,000 mls @ 100 mls/hr IVCONT .Q10H [facility] Last Admin: 03/21/21 18:33 Dose: Not Given Documented by: Ceftriaxone Sodium 1 gm/ (Sodium Chloride) 50 mls @ 100 mls/hr IV Q24H [facility] Last Infusion: 03/21/21 13:59 Dose: Infused Documented by: Doxycycline Hyclate 100 mg/ (Sodium Chloride) 250 mls @ 166.67 mls/hr IV Q12H [facility] [place] Last Infusion: 03/21/21 17:17 Dose: Infused Documented by: Ketorolac Tromethamine (Ketorolac Tromethamine 30 Mg/Ml Vial) 15 mg IVPUSH Q6H PRN PRN Reason: Pain, Severe (Pain Scale 7-10) Last Admin: 03/21/21 17:35 Dose: 15 mg Documented by: Levothyroxine Sodium (Levothyroxine Sodium 112 Mcg Tablet) 112 mcg PO DAILY@0600 [facility] [place] Last Admin: 03/21/21 07:55 Dose: 112 mcg Documented by: Lidocaine/Diphenhydr/Alum/Mg/Simeth (Mag&Al/Sim/Diphenhyd/Lidocaine 10 Ml Oral.Susp) 10 ml PO Q6H [facility] [place]; Protocol Last Admin: 03/21/21 17:36 Dose: 10 ml Documented by: Loratadine (Loratadine 10 Mg Tablet) 10 mg PO DAILY [facility] [place] Last Admin: 03/21/21 08:56 Dose: 10 mg Documented by: Methylprednisolone Sodium Succinate (Methylprednisolone Sod Succ 40 Mg/Ml Vial) 20 mg IVPUSH Q12H [facility] Last Admin: 03/21/21 21:06 Dose: 20 mg Documented by: Ondansetron HCl (Ondansetron Hcl 4 Mg/2 Ml Vial) 4 mg IVPUSH Q8H PRN PRN Reason: Nausea and Vomiting Last Admin: 03/21/21 08:56 Dose: 4 mg Documented by: Pharmacy Consult (Consult Rx Perform Med Rec) 1 each MISCELLANE ONCE PRN PRN Reason: Consult order Sodium Chloride (0.9 % Sodium Chloride Flush 3 Ml Syringe) 3 ml IVFLUSH QSHIFT [facility] Last Admin: 03/21/21 15:51 Dose: Not Given Documented by: Home Medications Medication Instructions Recorded Confirmed Last Taken Type levothyroxine 112 mcg tablet 112 mcg PO DAILY 03/20/21 03/20/21 03/19/21 History Physical Exam Vital Signs: Vital Signs: Last Vital Signs Temp 98.0 F 03/21/21 19:34 Pulse 77 03/21/21 19:34 Resp 18 03/21/21 19:34 BP 140/76 H 03/21/21 19:34 Pulse Ox 96 03/21/21 19:34 BMI result Body Mass Index 37.3 Eyes: General: appearance normal, both eyes and all related structures Resp: Effort & Inspection: normal respiratory effort Cardio: Rate: regular rate Skin: Other: five or more ecchymoses on body Results Labs CBC & Chem 7: 03/23/21 05:14 03/23/21 05:14 Labs: Short CBC 03/21/21 Range/Units 05:49 WBC 14.3 H (4.8-10.8) X10*3/uL Hgb 12.8 (12.0-16.0) g/dl Hct 38.9 (37.0-47.0) % Plt Count 372 (160-400) X10*3/uL BMP 03/21/21 05:49 Sodium 139 Potassium 4.4 Chloride 109 H Carbon Dioxide 22 BUN 7 L Creatinine 0.66 Calcium 9.2 Microbiology Microbiology Results: Microbiology 03/20/21 Unknown Urine clean catch - Urine casey top Urine Culture - Preliminary Staphylococcus species 03/20/21 07:41 Blood - Venous Blood Culture - Preliminary No growth after 24 hours. 03/20/21 07:34 Blood - Venous Blood Culture - Preliminary No growth after 24 hours. Assessment and Plan (1) Ecchymosis: Status: Acute There is possible drug rash to Bactrim She may have vascultis [place] (2) Swollen lip: Status: Acute Would continue off antibiotics Would consider having Hematology look at bruising Check HIV test.
[2021-03-22] VITALS (7 sets, daily range): BP systolic 109–152; BP diastolic 65–90; PULSE 56–97; RESP 17–18; TEMP 36.2–36.9; O2SAT 96–98
[2021-03-22] MEDS: Doxycycline Hyclate 100 MG in 0.9 % Sodium Chloride 250 ML 166.67 MG IV (00:30)
[2021-03-22] MEDS: Mag&Al/Sim/Diphenhyd/Lidocaine 10 ML ORAL.SUSP PO ×4 (00:31→17:32)
[2021-03-22] MEDS: Ketorolac Tromethamine 30 MG/ML VIAL 15 MG IVPUSH ×2 (00:40→17:33)
[2021-03-22] MEDS: 0.9 % Sodium Chloride Flush 3 ML SYRINGE IVFLUSH ×3 (00:46→20:59)
[2021-03-22 04:16] LABS: HIV Num 1 1.29 S/CO (0.00-0.99)
[2021-03-22 05:15] LABS: HIV AB/AG Nonreactive (Nonreactive); HIV Num 2 0.05 S/CO; HIV Num 3 0.07 S/CO
[2021-03-22 05:44] LABS: Hematocrit 35.9 % (37.0-47.0); Hemoglobin 11.6 g/dl (12.0-16.0); Mean Corpuscular HGB Conc 32.3 g/dl (31.0-35.0); Mean Corpuscular Hemoglobin 30.6 pg (27.0-33.0); Mean Corpuscular Volume 94.7 fL (80.0-98.0); Mean Platelet Volume 10.1 fL (9.4-12.3); Platelet Count 356 X10*3/uL (160-400); Red Blood Count 3.79 X10*6/uL (4.20-5.50); White Blood Count 16.1 X10*3/uL (4.8-10.8)
[2021-03-22] MEDS: Levothyroxine Sodium 112 MCG TABLET PO (05:50)
[2021-03-22 05:57] LABS: Anion Gap 10 (12-20); Blood Urea Nitrogen 8 mg/dL (9-16); Calcium 8.4 mg/dL (8.4-10.2); Carbon Dioxide 23 mmol/L (22-29); Chloride 111 mmol/L (96-108); Creatinine Clr Calc Pharmacy 114.3; Estimated Glomerular Filt Rate > 60; Glucose Random 134 mg/dL (60-115); Sodium 140 mmol/L (135-145)
[2021-03-22] MEDS: methylPREDNISolone Sod Succ 40 MG/ML VIAL 20 MG IVPUSH ×2 (07:47→20:59)
[2021-03-22] MEDS: Loratadine 10 MG TABLET PO (07:48)
--- NOTE | 2021-03-22 10:10 | HO.PM.IMPN ---
Subjective Subjective Date of Service: 03/22/21 Interval History: The patient was seen and evaluated this morning Laying in bed, still complaining of mouth pain and skin lesions Had low grade fever overnight of 100 No reported other overnight events Systemic review: low grade fever, chills but denies weakness No chest pain, palpitation No shortness of breath or coughing No abdominal pain, nausea or vomiting No urinary symptoms Still complaining of pain at the skin lesions Physical Exam Vital Signs: Vital Signs: Last Vital Signs Temp 97.1 F 03/22/21 07:33 Pulse 97 03/22/21 07:33 Resp 18 03/22/21 07:33 BP 123/90 H 03/22/21 07:33 Pulse Ox 97 03/22/21 07:33 BMI result Body Mass Index 37.3 Const: Other: Constitutional : Alert, oriented, not in distress Neck : Normal inspection, Supple Cardiovascular : RRR, S1 S2, no lower extremity edema Respiratory : Good bilateral air entry, no crackles, wheezes or rhonchi Gastrointestinal: soft, lax, Normal bowel sounds, Non tender Skin : Warm, Dry, multiple areas of raised skin whales erythema and mild tenderness noted, wrist, back and left leg with mild tenderness Neurological : Alert & oriented x3, No focal deficit Objective Data Active Medications Acetaminophen (Acetaminophen 325 Mg Tablet) 650 mg PO Q6H PRN PRN Reason: Pain, Mild (Pain Scale 1-3) Last Admin: 03/21/21 08:00 Dose: 650 mg Documented by: MARTÍN Al Hydroxide/Mg Hydroxide (Magnesium Hydrox/Alum Hydrox 30 Ml Oral.Susp) 30 ml PO Q4H PRN PRN Reason: Heartburn/Nausea Diphenhydramine HCl (Diphenhydramine Hcl 50 Mg/Ml Vial) 25 mg IVPUSH Q4H PRN PRN Reason: Itching Last Admin: 03/21/21 08:56 Dose: 25 mg Documented by: MARTÍN Enoxaparin Sodium (Enoxaparin Sodium 40 Mg/0.4 Ml Syringe) 40 mg SUBCUT Q24H [facility] Last Admin: 03/21/21 13:24 Dose: 40 mg Documented by: MARTÍN Ketorolac Tromethamine (Ketorolac Tromethamine 30 Mg/Ml Vial) 15 mg IVPUSH Q6H PRN PRN Reason: Pain, Severe (Pain Scale 7-10) Last Admin: 03/22/21 00:40 Dose: 15 mg Documented by: ELLIS Levothyroxine Sodium (Levothyroxine Sodium 112 Mcg Tablet) 112 mcg PO DAILY@0600 [facility] Last Admin: 03/22/21 05:50 Dose: 112 mcg Documented by: ELLIS Lidocaine/Diphenhydr/Alum/Mg/Simeth (Mag&Al/Sim/Diphenhyd/Lidocaine 10 Ml Oral.Susp) 10 ml PO Q6H [facility]; Protocol Last Admin: 03/22/21 05:50 Dose: 10 ml Documented by: ELLIS Loratadine (Loratadine 10 Mg Tablet) 10 mg PO DAILY [facility] Last Admin: 03/22/21 07:48 Dose: 10 mg Documented by: MARGARITA Methylprednisolone Sodium Succinate (Methylprednisolone Sod Succ 40 Mg/Ml Vial) 20 mg IVPUSH Q12H [facility] Last Admin: 03/22/21 07:47 Dose: 20 mg Documented by: MARGARITA Ondansetron HCl (Ondansetron Hcl 4 Mg/2 Ml Vial) 4 mg IVPUSH Q8H PRN PRN Reason: Nausea and Vomiting Last Admin: 03/21/21 08:56 Dose: 4 mg Documented by: MARTÍN Pharmacy Consult (Consult Rx Perform Med Rec) 1 each MISCELLANE ONCE PRN PRN Reason: Consult order Sodium Chloride (0.9 % Sodium Chloride Flush 3 Ml Syringe) 3 ml IVFLUSH QSHIFT [facility] Last Admin: 03/22/21 07:52 Dose: Not Given Documented by: MARGARITA Non-Admin Reason: IV Running Labs CBC & Chem 7: 03/22/21 05:17 03/22/21 05:17 Labs: Laboratory Results - last 24 hr 03/21/21 03/21/21 03/22/21 14:19 21:47 05:17 MCV 94.7 MCH 30.6 MCHC 32.3 RDW 13.0 Plt Count 356 MPV 10.1 Absolute Nucleated RBC 0.000 Nucleated RBC % (auto) 0.0 Anion Gap Estim Creat Clear Calc Estimated GFR Random Glucose Calcium HIV 1&2 Ab/P24 Ag 4thGn Cancelled Nonreactive 03/22/21 05:17 MCV MCH MCHC RDW Plt Count MPV Absolute Nucleated RBC Nucleated RBC % (auto) Anion Gap 10 L Estim Creat Clear Calc 114.3 Estimated GFR > 60 Random Glucose 134 H Calcium 8.4 D HIV 1&2 Ab/P24 Ag 4thGn Microbiology Microbiology Results: Microbiology 03/20/21 07:41 Blood Culture - Preliminary Blood - Venous No growth after 48 hours. 03/20/21 07:34 Blood Culture - Preliminary Blood - Venous No growth after 48 hours. 03/20/21 Unknown Urine Culture - Preliminary Urine clean catch - Urine casey top Staphylococcus species Assessment and Plan (1) UTI (urinary tract infection): Status: Acute (2) Ecchymosis: Status: Acute (3) Swollen lip: Status: Acute (4) Skin rash: Status: Acute Assessment and Plan: 45 years old lady with PMH of hypothyroidism who presents to the hospital complaining of skin rash and fever for the last 2 days. Leukocytosis Elevated on presentation at 16,000 Could be reactive or secondary to UTI Receiving steroids which might increase the white blood cells UTI U.Cx grwoing 10-50k staph species Continue Ceftriaxone D2 pending final Cx result Skin rash Recurrent, similar distribution to last November stable, no drainage noted Treat as allergic reaction with steroids, H1 blockers Benadryl p.r.n. ID evaluation, DC ABx and get Hematology eval To get Hematology eval mouth pain, Tongue ulcers Secondary to the reaction, to use magic mouthwash continue to monitor Hypothyroid continue levothyroxine DVT PPX Lovenox Quality Stroke Does the patient have a stroke diagnosis?: No VTE Prior VTE?: No VTE Risk Level:: Medical - moderate - high VTE Device Contraindication: Treatment Not Indicated VTE Drug Contraindication: N/A - Med Ordered
--- NOTE | 2021-03-22 11:22 | P.CNHO_ITS ---
Subjective - Subjective Chief complaint: Skin bruising/rash Patient: new to practice Consult date: 03/22/21 Requesting Physician: Dr. Rao Primary Care Provider: Unknown Physician HPI - Consult Narrative Reason for consult: Skin lesions Narrative: Jenae Knox is a 45 year old woman who has developed recurrent skin lesions since November of this year. The 1st lesions appeared on her right wrist, it was slightly painful and tender. Later it involved other parts of her body including trunk and lips. She was tested for Lyme disease and it was negative. She has been on antibiotics doxycycline and Bactrim in the last few months. She was on Bactrim for a UTI. She denies arthralgias or myalgias. Her main problem today is soreness of her lips and mouth. There is no personal or family history of autoimmune disorders. No other complaints such as fever, chills, night sweats or unexplained weight loss. Review of Systems - Constitutional Reports as per HPI, Reports no additional constitutional complaints - ENT Reports mouth lesions, Reports mouth pain - Cardiovascular Reports no additional cardiovascular complaints - Respiratory Reports no additional respiratory complaints - Gastrointestinal Reports no additional gastrointestinal complaints - Neurologic Reports no additional neurologic complaints [facility] Medical History: Medical History (Last Updated 03/22/21 @ 14:35 by Uzma White MD) Hypothyroidism No known health problems Family history: reviewed and not pertinent Social History: Social History (Last Reviewed 03/21/21 @ 21:25 by Mariangel Vincent MD) Living Situation History: Household Members: Children Housing: House Do you presently have visiting nurse or other home services: No Alcohol History Details: Alcohol intake frequency: does not drink Tobacco History: Patient Tobacco Use Status: Current everyday Tobacco Tobacco use type: Cigarette Years Smoked: 2 Occupation Assessmet: service: No Current occupational status: employed Home Medications and Allergies Current Medications: Current Medications Acetaminophen (Acetaminophen 325 Mg Tablet) 650 mg PO Q6H PRN PRN Reason: Pain, Mild (Pain Scale 1-3) Last Admin: 03/21/21 08:00 Dose: 650 mg Documented by: Al Hydroxide/Mg Hydroxide (Magnesium Hydrox/Alum Hydrox 30 Ml Oral.Susp) 30 ml PO Q4H PRN PRN Reason: Heartburn/Nausea Diphenhydramine HCl (Diphenhydramine Hcl 50 Mg/Ml Vial) 25 mg IVPUSH Q4H PRN PRN Reason: Itching Last Admin: 03/21/21 08:56 Dose: 25 mg Documented by: Enoxaparin Sodium (Enoxaparin Sodium 40 Mg/0.4 Ml Syringe) 40 mg SUBCUT Q24H [facility] Last Admin: 03/21/21 13:24 Dose: 40 mg Documented by: Ceftriaxone Sodium 1 gm/ (Sodium Chloride) 50 mls @ 100 mls/hr IV Q24H [facility] Ketorolac Tromethamine (Ketorolac Tromethamine 30 Mg/Ml Vial) 15 mg IVPUSH Q6H PRN PRN Reason: Pain, Severe (Pain Scale 7-10) Last Admin: 03/22/21 00:40 Dose: 15 mg Documented by: Levothyroxine Sodium (Levothyroxine Sodium 112 Mcg Tablet) 112 mcg PO DAILY@0600 [facility] Last Admin: 03/22/21 05:50 Dose: 112 mcg Documented by: Lidocaine/Diphenhydr/Alum/Mg/Simeth (Mag&Al/Sim/Diphenhyd/Lidocaine 10 Ml Oral.Susp) 10 ml PO Q6H [facility]; Protocol Last Admin: 03/22/21 05:50 Dose: 10 ml Documented by: Loratadine (Loratadine 10 Mg Tablet) 10 mg PO DAILY [facility] Last Admin: 03/22/21 07:48 Dose: 10 mg Documented by: Methylprednisolone Sodium Succinate (Methylprednisolone Sod Succ 40 Mg/Ml Vial) 20 mg IVPUSH Q12H [facility] Last Admin: 03/22/21 07:47 Dose: 20 mg Documented by: Ondansetron HCl (Ondansetron Hcl 4 Mg/2 Ml Vial) 4 mg IVPUSH Q8H PRN PRN Reason: Nausea and Vomiting Last Admin: 03/21/21 08:56 Dose: 4 mg Documented by: Pharmacy Consult (Consult Rx Perform Med Rec) 1 each MISCELLANE ONCE PRN PRN Reason: Consult order Sodium Chloride (0.9 % Sodium Chloride Flush 3 Ml Syringe) 3 ml IVFLUSH QSHIFT [facility] Last Admin: 03/22/21 07:52 Dose: Not Given Documented by: Home Medications Medication Instructions Recorded Confirmed Type levothyroxine 112 mcg tablet 112 mcg PO DAILY 03/20/21 03/20/21 History sulfamethoxazole 800 1 tab PO BID 03/20/21 03/20/21 History mg-trimethoprim 160 mg tablet Allergies Allergy/AdvReac Type Severity Reaction Status Date / Time No Known Allergies Allergy Verified 03/18/21 12:18 Physical Exam Vital signs: Vital Signs Temp 97.1 F 03/22/21 07:33 Pulse 97 03/22/21 07:33 Resp 18 03/22/21 07:33 BP 123/90 H 03/22/21 07:33 Pulse Ox 97 03/22/21 07:33 Intake & Output 03/21/21 03/22/21 03/22/21 18:59 06:59 18:59 Intake Total 1540 / 2190 650 / 2190 400 / 400 Output Total 600 / 1075 475 / 1075 Balance 940 / 1115 175 / 1115 400 / 400 Urine Output (Average ml/kg/hr) 0.58 0.46 0.46 Intake: Intake, Oral Amount 240 / 340 100 / 340 Intake, IV Amount 1300 / 1850 550 / 1850 400 / 400 Doxycycline Hyclate 100 mg In 0 250 / 500 250 / 500 .9 % Sodium Chloride 250 ml @ 166.67 mls/hr IV Q12H [facility] Rx#: [id number] cefTRIAXone sodium 1 gm In 0.9 50 / 50 % Sodium Chloride 50 ml @ 100 mls/hr IV Q24H [facility] Rx#: [id number] Dextrose 5 % and 0.9 % NaCl 1, 1000 / 1300 300 / 1300 400 / 400 000 ml @ 100 mls/hr IVCONT . Q10H [facility] Rx#:[id number] Output: Output, Urine Amount 600 / 1075 475 / 1075 Other: Meal Refused No NPO No Breakfast % Eaten nothere Lunch % Eaten not here Dinner % Eaten 50% Urine Bathroom Bathroom Urine Color Straw Yellow Last Bowel Movement 03/20/21 Weight 86.581 kg - Constitutional Present: mild distress, cooperative - Routine HEENT Exam Eye: Present: EOMI Comments: Lesions on tongue and inner lips. - Routine Neck Exam Present: supple. Absent: lymphadenopathy - Routine Respiratory Exam Present: CTAB - Routine Cardiovascular Exam Cardiovascular: Present: S1, S2 - Routine Abdominal Exam Present: normal bowel sounds, soft. Absent: mass, tenderness - Routine Extremities Exam Present: pulses intact. Absent: calf tenderness - Routine Skin Exam Present: erythema, lesions, rash Hem/Onc Consult Result - Labs CBC & Chem 7: 03/22/21 05:17 03/22/21 05:17 Labs: Short CBC 03/22/21 Range/Units 05:17 WBC 16.1 H (4.8-10.8) X10*3/uL Hgb 11.6 L (12.0-16.0) g/dl Hct 35.9 L (37.0-47.0) % Plt Count 356 (160-400) X10*3/uL BMP 03/22/21 05:17 Sodium 140 Potassium 4.0 Chloride 111 H Carbon Dioxide 23 BUN 8 L Creatinine 0.62 Calcium 8.4 D Assessment and Plan Patient Active problem list reviewed?: Yes (1) Skin rash Status: Acute Assessment and plan: 1. This is a 45-year-old woman presenting with ongoing skin rash since November 2020. She has recurrent lesions appearing on different parts of her body, these a predominantly macular, slightly raised erythematous and mildly tender. Some of them appear to be healing and drying out. These first appeared in November 2020 before use of any antibiotics. Her platelet counts and coagulation tests are normal. She does not give any history of easy skin bruising or bleeding. She has neutrophilic leukocytosis with elevated CRP suggestive of inflammation. Certain blood disorders such as leukemias can be associated with similar skin rashes but her blood work does not suggest any acute hematological process at this time. She will need workup for underlying autoimmune disorder/vasculitis. Rheumatology /dermatology consultation, biopsy of skin lesion for diagnosis and further management. I thank you for this consultation. - Time Spent With Patient Time Spent with Patient (in minutes): 20
[2021-03-22] MEDS: Enoxaparin Sodium 40 MG/0.4 ML SYRINGE SUBCUT (12:37)
[2021-03-22] MEDS: cefTRIAXone sodium 1 GM in 0.9 % Sodium Chloride 50 ML IV (12:37)
--- NOTE | 2021-03-22 12:43 | PC.NURSE ---
Skin assessment completed. Patient has dark red patches on right shoulder, right thumb/hand, right lower back and left calf. Sween 24 moisturizing cream applied to prevent dryness and breakdown. No other skin issues noted at this time.
[2021-03-22] MEDS: diphenhydrAMINE HCL 50 MG/ML VIAL 25 MG IVPUSH (17:33)
[2021-03-23] MEDS: Mag&Al/Sim/Diphenhyd/Lidocaine 10 ML ORAL.SUSP PO ×3 (00:36→13:37)
[2021-03-23 03:49] VITALS: BP 118/72; PULSE 65; RESP 18; TEMP 36.7; O2SAT 99
[2021-03-23] MEDS: Levothyroxine Sodium 112 MCG TABLET PO (06:04)
[2021-03-23 06:06] LABS: Hematocrit 39.3 % (37.0-47.0); Hemoglobin 12.8 g/dl (12.0-16.0); Mean Corpuscular HGB Conc 32.6 g/dl (31.0-35.0); Mean Corpuscular Volume 95.2 fL (80.0-98.0); Mean Platelet Volume 10.1 fL (9.4-12.3); Platelet Count 389 X10*3/uL (160-400); Red Blood Count 4.13 X10*6/uL (4.20-5.50); White Blood Count 13.9 X10*3/uL (4.8-10.8)
[2021-03-23 06:17] LABS: Anion Gap 11 (12-20); Blood Urea Nitrogen 9 mg/dL (9-16); Calcium 9.1 mg/dL (8.4-10.2); Carbon Dioxide 26 mmol/L (22-29); Chloride 109 mmol/L (96-108); Creatinine Clr Calc Pharmacy 101.2; Estimated Glomerular Filt Rate > 60; Glucose Random 102 mg/dL (60-115); Potassium 4.9 mmol/L (3.3-5.1); Sodium 141 mmol/L (135-145)
[2021-03-23 08:00] VITALS: BP 144/83; PULSE 74; RESP 17; TEMP 36.4; O2SAT 98
[2021-03-23] MEDS: methylPREDNISolone Sod Succ 40 MG/ML VIAL 20 MG IVPUSH (08:59)
[2021-03-23] MEDS: 0.9 % Sodium Chloride Flush 3 ML SYRINGE IVFLUSH (09:00)
[2021-03-23] MEDS: Loratadine 10 MG TABLET PO (09:00)
[2021-03-23] MEDS: Lidocaine HCl 1 % 20 ML VIAL SUBCUT (10:51)
--- NOTE | 2021-03-23 11:05 | P.CONGS_ITS ---
History of Present Illness Consult details Consult date: 03/23/21 Narrative: 45-year-old female referred to me for skin biopsy. She had been admitted because of worsening skin lesions mostly on her torso and extremities. She had described this to have started last November,. This seemed to be more of a macular rash which has spread. She also describes painful lesions over her down. She had been on antibiotics for a question of Lyme disease but these macular lesions have persisted. I was therefore asked to consult for a punch biopsy of the skin. She denies any other complaints. She does describe occasional pain on these lesions. Review of Systems Constitutional: Constitutional: Denies chills and Denies fever(s) Cardiovascular: Cardiovascular: Denies chest pain, Denies dyspnea and Denies dyspnea on exertion Respiratory: Respiratory: Denies cough, Denies dyspnea and Denies dyspnea on exertion Gastrointestinal: Gastrointestinal: Denies hematochezia and Denies change in bowel habits Genitourinary: Genitourinary: Denies hematuria Musculoskeletal: Musculoskeletal: Denies back pain and Denies limited range of motion Neurologic: Denies focal weakness and Denies convulsions Psychiatric: Psychiatric: Denies depression and Denies mood swings [facility] Past Medical History Medical History Hypothyroidism No known health problems Family History Family History (Updated 03/23/21 @ 13:15 by Obi Kirby MD) Sister SLE (systemic lupus erythematosus related syndrome) Family history: reviewed and not pertinent Social History Social History Household Members: Children Housing: House Do you presently have visiting nurse or other home services: No Patient Tobacco Use Status: Current everyday Tobacco user Tobacco use type: Cigarette Years Smoked: 2 service: No Current occupational status: employed Meds Allergies Allergy/AdvReac Type Severity Reaction Status Date / Time No Known Allergies Allergy Verified 03/18/21 12:18 Active Medications: Current Medications Acetaminophen (Acetaminophen 325 Mg Tablet) 650 mg PO Q6H PRN PRN Reason: Pain, Mild (Pain Scale 1-3) Last Admin: 03/21/21 08:00 Dose: 650 mg Documented by: Al Hydroxide/Mg Hydroxide (Magnesium Hydrox/Alum Hydrox 30 Ml Oral.Susp) 30 ml PO Q4H PRN PRN Reason: Heartburn/Nausea Diphenhydramine HCl (Diphenhydramine Hcl 50 Mg/Ml Vial) 25 mg IVPUSH Q4H PRN PRN Reason: Itching Last Admin: 03/22/21 17:33 Dose: 25 mg Documented by: Enoxaparin Sodium (Enoxaparin Sodium 40 Mg/0.4 Ml Syringe) 40 mg SUBCUT Q24H [facility] Last Admin: 03/22/21 12:37 Dose: 40 mg Documented by: Ceftriaxone Sodium 1 gm/ (Sodium Chloride) 50 mls @ 100 mls/hr IV Q24H [facility] Last Infusion: 03/22/21 13:48 Dose: Infused Documented by: Ketorolac Tromethamine (Ketorolac Tromethamine 30 Mg/Ml Vial) 15 mg IVPUSH Q6H PRN PRN Reason: Pain, Severe (Pain Scale 7-10) Last Admin: 03/22/21 17:33 Dose: 15 mg Documented by: Levothyroxine Sodium (Levothyroxine Sodium 112 Mcg Tablet) 112 mcg PO DAILY@0600 [facility] Last Admin: 03/23/21 06:04 Dose: 112 mcg Documented by: Lidocaine/Diphenhydr/Alum/Mg/Simeth (Mag&Al/Sim/Diphenhyd/Lidocaine 10 Ml Oral.Susp) 10 ml PO Q6H [facility]; Protocol Last Admin: 03/23/21 06:04 Dose: 10 ml Documented by: Loratadine (Loratadine 10 Mg Tablet) 10 mg PO DAILY [facility] Last Admin: 03/23/21 09:00 Dose: 10 mg Documented by: Methylprednisolone Sodium Succinate (Methylprednisolone Sod Succ 40 Mg/Ml Vial) 20 mg IVPUSH Q12H [facility] Last Admin: 03/23/21 08:59 Dose: 20 mg Documented by: Ondansetron HCl (Ondansetron Hcl 4 Mg/2 Ml Vial) 4 mg IVPUSH Q8H PRN PRN Reason: Nausea and Vomiting Last Admin: 03/21/21 08:56 Dose: 4 mg Documented by: Pharmacy Consult (Consult Rx Perform Med Rec) 1 each MISCELLANE ONCE PRN PRN Reason: Consult order Sodium Chloride (0.9 % Sodium Chloride Flush 3 Ml Syringe) 3 ml IVFLUSH QSHIFT [facility] Last Admin: 03/23/21 09:00 Dose: 3 ml Documented by: Home Medications Medication Instructions Recorded Confirmed Last Taken Type levothyroxine 112 mcg tablet 112 mcg PO DAILY 03/20/21 03/20/21 03/19/21 History Physical Exam Vital Signs: Vital Signs: Last Vital Signs Temp 97.5 F 03/23/21 08:00 Pulse 74 03/23/21 08:00 Resp 17 03/23/21 08:00 BP 144/83 H 03/23/21 08:00 Pulse Ox 98 03/23/21 08:00 BMI result Body Mass Index 37.3 Const: General: comfortable and no acute distress Orientation/consciousness: patient oriented x3 Neck: Neck: Yes no lymphadenopathy Resp: Auscultation: clear to auscultation bilaterally Cardio: Rhythm: regular rhythm GI: Palpation (GI): Soft to palpation, nontender and no guarding Skin: Other: Macular regions on her torso and extremities, of varying sizes, well-defined borders, flat, no cellulitic changes Neuro: General: patient oriented x3 Results Labs Result diagrams: 03/23/21 05:14 03/23/21 05:14 Labs: Abnormal lab results 03/23/21 03/23/21 Range/Units 05:14 05:14 WBC 13.9 H (4.8-10.8) X10*3/uL RBC 4.13 L (4.20-5.50) X10*6/uL Chloride 109 H (96-108) mmol/L Anion Gap 11 L (12-20) Short CBC 03/23/21 Range/Units 05:14 WBC 13.9 H (4.8-10.8) X10*3/uL Hgb 12.8 (12.0-16.0) g/dl Hct 39.3 (37.0-47.0) % Plt Count 389 (160-400) X10*3/uL BMP 03/23/21 05:14 Sodium 141 Potassium 4.9 D Chloride 109 H Carbon Dioxide 26 BUN 9 Creatinine 0.70 Calcium 9.1 D Urine 03/20/21 03/20/21 Range/Units 10:41 10:41 Urine Color YELLOW Urine Appearance CLOUDY Urine pH 6.0 (5.0-8.0) Ur Specific [place] 1.010 (1.005-1.025) Urine Protein 1+ H (NEG-TRACE) MG/DL Urine Glucose (UA) NEG (NEG) MG/DL Urine Test NEGATIVE (NEGATIVE) All other labs normal. Assessment and Plan (1) Skin rash: Status: Acute She has this multiple macular lesions throughout her body. A skin biopsy was recommended by the oncologist. I explained this procedure to her. She had given her consent. Punch biopsy of the skin on an area with a macular lesion on the right shoulder was done under local anesthesia. She tolerated procedure well. Dry dressings can be daily. She can take oral pain medications for pain on the biopsy site. Procedures Date of Service Date of Service: 03/23/21
[2021-03-23 11:08] LABS: HBS Num1 > 1000.00 mIU/mL (0-7.99); HBc Num1 0.09 S/CO (0.00-0.79); Hepatitis B Core Antibody Nonreactive (Nonreactive); Hepatitis B Surface Antigen Negative (Negative); ~Hepatitis B Surface Antibody REACTIVE (Nonreactive); ~Hepatitis C Antibody Nonreactive (Nonreactive)
--- NOTE | 2021-03-23 11:09 | W.PM.OPN ---
Operative Note Operative Note Date of Service: 03/23/21 Narrative: Procedure: Punch biopsy of the skin on the right shoulder area under local anesthesia Preop diagnosis: Macular lesions Postop diagnosis: The same Surgeon: Davin Garcia MD The patient was placed in little bit of a left lateral decubitus position to expose the right shoulder. The area of a macular rash was prepped and draped. Lidocaine 1% was used for local anesthesia. I used a medium-sized punch biopsy to excise a circular area of pain and subcutaneous tissue. This was sent as a specimen for pathology. I applied dry dressings with gauze. The patient tolerated procedure well. There were no complication noted. Dressing changes can be done daily with Band-Aid or gauze starting 24 hours after the procedure.
[2021-03-23 12:00] VITALS: BP 144/76; PULSE 88; RESP 18; TEMP 36.6; O2SAT 97
--- NOTE | 2021-03-23 13:27 | PM.DS ---
DS: Providers Provider Date of Service: 03/23/21 Date of admission: 03/20/21 12:27 Primary care physician: Unknown Physician Consults: 03/20/21 12:28 Consult to Infectious Diseases Routine Consulting Provider: Mariangel Vincent Reason for consultation: Skin rash for 2nd time in few months, fever for your kind eval. 03/22/21 07:34 Consult to Hematology / Oncology Routine Consulting Provider: Mao Acosta Reason for consultation: Multiple bruises for your kind eval 03/23/21 09:19 Consult to General Surgery Routine Consulting Provider: Michael Rodriguez Reason for consultation: skin biopsy DS: Diagnosis Discharge Diagnosis (1) Skin rash: Status: Acute DS: Summary Hospital Course Hospital Course: Patient was admitted for recurrent skin lesions and oral ulcers. She was treated with steroids and Magic mouthwash with some improvement in symptoms. She had skin biopsy performed on 03/23/2021. She also had vasculitis workup, most results are still pending. She will referred to rheumatology for further evaluation. Given recurrent painful oral ulcers, and skin lesions would be concerned for autoimmune disease such as Bechets, patient dose have a sister with SLE. Time Spent with Patient Time attestation: Total time spent providing and/or coordinating discharge services: Discharge coordination time: Greater than 30 minutes Quality: Stroke Does the patient have a stroke diagnosis?: No Physical Exam Vital Signs: Vital Signs: Last Vital Signs Temp 97.8 F 03/23/21 12:00 Pulse 88 03/23/21 12:00 Resp 18 03/23/21 12:00 BP 144/76 H 03/23/21 12:00 Pulse Ox 97 03/23/21 12:00 BMI result Body Mass Index 37.3 DS: Data Data Completed and Pending Pending studies at discharge: Pending at discharge 03/23/21 10:46 Surgical [PTH] Routine Labs on day of discharge: Laboratory Results - last 24 hr 03/23/21 03/23/21 03/23/21 05:14 05:14 09:58 WBC 13.9 H RBC 4.13 L Hgb 12.8 Hct 39.3 MCV 95.2 MCH 31.0 MCHC 32.6 RDW 13.0 Plt Count 389 MPV 10.1 Absolute Nucleated RBC 0.000 Nucleated RBC % (auto) 0.0 Sodium 141 Potassium 4.9 D Chloride 109 H Carbon Dioxide 26 Anion Gap 11 L BUN 9 Creatinine 0.70 Estim Creat Clear Calc 101.2 Estimated GFR > 60 Random Glucose 102 Calcium 9.1 D Hep Bs Antigen Negative Hep Bs Antibody REACTIVE Hep B Core Total Ab Nonreactive Hepatitis C Ab (EIA) Nonreactive Preliminary micro results at discharge 03/20/21 07:41 Blood Culture - Preliminary Blood - Venous No growth after 48 hours. 03/20/21 07:34 Blood Culture - Preliminary Blood - Venous No growth after 48 hours. Discharge Plan Discharge Patient Disposition: Home, Self-Care Discharge Diagnosis: oral and skin lesions Referrals: Jayesh Schulz MD [Physician] - 1 Week (oral and skin lesions, [place] [facility] [place] sister has SLE[place] Physician,J Luis J [Primary Care Provider] - 1 Week Discharge Medications: New prednisone 20 mg tablet 20 mg PO DAILY Qty: 7 RF: 0 Magic Mouthwash Diphen/Lido/Antacid 1:1:1 240 mL suspension 10 ml PO TIDAC PRN (Reason: pain in mouth) Qty: 240 RF: 0 Continued levothyroxine 112 mcg tablet 112 mcg PO DAILY RF: 0 Discontinued doxycycline hyclate 100 mg capsule 100 mg PO BID 10 Days Qty: 20 RF: 0 sulfamethoxazole-trimethoprim 800-160 mg tablet 1 tab PO BID RF: 0 Discharge Orders: Discharge Order (Routine); Ordered 03/23/21 Ordered By: Obi Kirby Diet: advance to usual diet Activity on Discharge: As tolerated Stand Alone Forms: Patient Portal Discharge page Care Plan Goals: determine diagnosis for oral and skin lesions Health Concerns: oral and skin lesions Plan of Treatment: prednisone and magic mouthwash for now to help with symptoms, follow up with rheumatology as soon as possible to review pathology from biopsy done 03/23/2021 at [facility], and to review some of the labs that are still pending such as labs for lupus and vasculitis. Assessment: see above
[2021-03-23] MEDS: cefTRIAXone sodium 1 GM in 0.9 % Sodium Chloride 50 ML IV (13:38)
[2021-03-23 14:29] LABS: Amphetamine Screen Urine Not Detected (Not Detect); Barbiturates, Urine Not Detected (Not Detect); Benzodiazepines Screen Urine Not Detected (Not Detect); Cannabinoid Screen Urine POSITIVE (Not Detect); Cocaine Screen Urine Not Detected (Not Detect); Fentanyl, urine Not Detected (Not Detect); Opiate Screen Urine Not Detected (Not Detect); Phencyclidine Screen Urine Not Detected (Not Detect)
[2021-03-24 13:26] LABS: Complement C3 78 mg/dL (83-193)
[2021-03-25 16:36] LABS: Anti Nuclear Antibody Screen NEGATIVE (NEGATIVE)
[2021-03-28 13:36] LABS: Myeloperoxidase Antibody <1.0 AI; Proteinase 3 PR3 Antibodies <1.0 AI
== END 2021-03-23 16:35 | disposition home or self-care (01) | DRG 115 ==
LOC: HO.ED 11:03 → HO.EDOVER 12:52 → HO.S3 03-21 12:57
PROVIDERS: Internal Medicine; Admitting Provider Student in an Organized Health Care Education/Training Program; Emergency Provider Emergency Medicine; Visit Provider Internal Medicine
DX: K14.0 Glossitis (principal); M35.2 Behcet's disease; D72.829 Elevated white blood cell count, unspecified; E03.9 Hypothyroidism, unspecified; F17.210 Nicotine dependence, cigarettes, uncomplicated; N39.0 Urinary tract infection, site not specified; Z71.6 Tobacco abuse counseling; Z20.822 Contact with and (suspected) exposure to COVID-19; Z79.890 Hormone replacement therapy; Z79.899 Other long term (current) drug therapy
CPT/HCPCS: 36415; 71045; 80048; 80053; 80307; 81001; 81025; 83605; 85025; 85027; 85610; 85652; 85730; 86021; 86038; 86039; 86140; 86160; 86704; 86706; 86803; 87040; 87086; 87088; 87186; 87340; 87389; 87635; 88305; 88312; 96361; 96374; 96375; 99285; J0696; J1200; J1650; J1885; J2270; J2405; J2920; J2930

== ENCOUNTER 2021-04-12 09:32 | Outpatient (REF) | payer OTHER, SELFPAY ==
[2021-04-12 09:46] LABS: MANUAL DIFF FLAG NO
[2021-04-12 10:13] LABS: Basophils Absolute Auto 0.1 X10*3/uL (0.0-0.2); Basophils Percent Auto 0.8 % (0-2); Eosinophils Absolute Auto 0.4 X10*3/uL (0.0-0.4); Eosinophils Percent Auto 3.8 % (0-4); Hematocrit 42.3 % (37.0-47.0); Hemoglobin 13.7 g/dl (12.0-16.0); Imm Gran Abs Auto 0.02 X10*3/uL (0.00-0.03); Imm Gran Pct Auto 0.2 % (0.0-0.4); Lymphocytes Absolute Auto 3.9 X10*3/uL (1.2-4.9); Lymphocytes Percent Auto 37.8 % (20-40); Mean Corpuscular HGB Conc 32.4 g/dl (31.0-35.0); Mean Corpuscular Hemoglobin 30.9 pg (27.0-33.0); Mean Corpuscular Volume 95.5 fL (80.0-98.0); Monocytes Absolute Auto 0.7 X10*3/uL (0.1-1.2); Monocytes Percent Auto 6.9 % (2-11); Neutrophils Absolute Auto 5.2 x10*3/uL (2.0-8.3); Neutrophils Percent Auto 50.5 % (45-73); Platelet Count 434 X10*3/uL (160-400); Red Blood Count 4.43 X10*6/uL (4.20-5.50); Red Cell Distribution Width 13.4 % (11.0-16.0); White Blood Count 10.3 X10*3/uL (4.8-10.8)
[2021-04-12 10:35] LABS: Alanine Aminotransferase 17 U/L (0-31); Albumin Level 4.2 g/dL (3.5-5.0); Alkaline Phosphatase 77 U/L (39-117); Anion Gap 11 (12-20); Aspartate Amino Transferase 18 U/L (5-31); Bilirubin Total 0.3 mg/dL (0.0-1.0); Blood Urea Nitrogen 6 mg/dL (9-16); Calcium 9.5 mg/dL (8.4-10.2); Carbon Dioxide 25 mmol/L (22-29); Chloride 107 mmol/L (96-108); Cholesterol 226 mg/dL; Estimated Glomerular Filt Rate > 60; Glucose Random 94 mg/dL (60-115); HDL Cholesterol 55 mg/dL; LDL Cholesterol Calculated 148 mg/dl; Potassium 4.7 mmol/L (3.3-5.1); Sodium 138 mmol/L (135-145); Total Protein 7.4 g/dL (6.5-8.0); Triglycerides 119 mg/dL
[2021-04-12 10:57] LABS: Thyroid Stimulating Hormone 11.57 uIU/mL (0.32-4.0)
== END 2021-04-12 09:33 | disposition home or self-care (01) ==
LOC: HO.LAB 09:32
PROVIDERS: PCP Internal Medicine; Visit Provider Internal Medicine
DX: E03.8 Other specified hypothyroidism (principal); N30.00 Acute cystitis without hematuria
CPT/HCPCS: 36415; 80053; 80061; 84443; 85025

== ENCOUNTER 2021-09-19 12:12 | Outpatient (REF) | payer OTHER, SELFPAY ==
[2021-09-19 13:54] LABS: Alanine Aminotransferase 15 U/L (0-31); Albumin Level 4.2 g/dL (3.5-5.0); Alkaline Phosphatase 76 U/L (39-117); Anion Gap 13 (12-20); Aspartate Amino Transferase 16 U/L (5-31); Bilirubin Total 0.2 mg/dL (0.0-1.0); Blood Urea Nitrogen 9 mg/dL (9-16); Calcium 9.4 mg/dL (8.4-10.2); Carbon Dioxide 23 mmol/L (22-29); Chloride 106 mmol/L (96-108); Estimated Glomerular Filt Rate > 60; Glucose Random 95 mg/dL (60-115); Potassium 4.3 mmol/L (3.3-5.1); Sodium 138 mmol/L (135-145); Total Protein 7.5 g/dL (6.5-8.0)
[2021-09-19 14:00] LABS: Thyroid Stimulating Hormone 0.24 uIU/mL (0.32-4.0)
== END 2021-09-19 12:13 | disposition home or self-care (01) ==
LOC: HO.10HDL 12:12
PROVIDERS: Visit Provider Internal Medicine
DX: E03.5 Myxedema coma (principal); N30.00 Acute cystitis without hematuria
CPT/HCPCS: 36415; 80053; 84443

== ENCOUNTER 2022-02-10 09:42 | Emergency (ER) | payer OTHER, SELFPAY ==
[2022-02-10 09:47] VITALS: BP 146/71; PULSE 78; RESP 19; TEMP 36.6; O2SAT 98; BMI 37.3
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
== END 2022-02-10 10:51 | disposition home or self-care (01) ==
PROVIDERS: Emergency Provider Emergency Medicine
DX: M54.50 Low back pain, unspecified (principal); F17.210 Nicotine dependence, cigarettes, uncomplicated; Z71.6 Tobacco abuse counseling; Z79.899 Other long term (current) drug therapy
CPT/HCPCS: 99283

== ENCOUNTER 2022-03-31 07:58 | Outpatient (REF) | payer OTHER, SELFPAY ==
[2022-03-31 09:19] LABS: Thyroid Stimulating Hormone 1.52 uIU/mL (0.32-4.0)
== END 2022-03-31 07:59 | disposition home or self-care (01) ==
LOC: HO.LAB 07:58
PROVIDERS: PCP Internal Medicine; Visit Provider Internal Medicine
DX: E03.8 Other specified hypothyroidism (principal); N30.00 Acute cystitis without hematuria
CPT/HCPCS: 36415; 84443

== ENCOUNTER 2022-04-05 12:02 | Outpatient (REF) | payer OTHER, SELFPAY | END 2022-04-05 12:03 | disposition home or self-care (01) | LOC: HO.10HDLNP 12:02 | PROVIDERS: Visit Provider Internal Medicine | DX: Z00.00 Encounter for general adult medical examination without abnormal findings (principal); E03.8 Other specified hypothyroidism; F32.9 Major depressive disorder, single episode, unspecified; N30.00 Acute cystitis without hematuria | CPT/HCPCS: 87086; 87088; 87186 ==

== ENCOUNTER 2022-07-04 08:41 | Outpatient (REF) | payer OTHER, SELFPAY ==
[2022-07-04 08:59] LABS: MANUAL DIFF FLAG NO
[2022-07-04 09:40] LABS: Basophils Absolute Auto 0.1 X10*3/uL (0.0-0.2); Basophils Percent Auto 0.6 % (0-2); Eosinophils Absolute Auto 0.4 X10*3/uL (0.0-0.4); Eosinophils Percent Auto 2.4 % (0-4); Hematocrit 41.8 % (37.0-47.0); Imm Gran Abs Auto 0.04 X10*3/uL (0.00-0.03); Imm Gran Pct Auto 0.3 % (0.0-0.4); Lymphocytes Absolute Auto 3.9 X10*3/uL (1.2-4.9); Lymphocytes Percent Auto 27.1 % (20-40); Mean Corpuscular HGB Conc 33.5 g/dl (31.0-35.0); Mean Corpuscular Hemoglobin 31.3 pg (27.0-33.0); Mean Corpuscular Volume 93.3 fL (80.0-98.0); Mean Platelet Volume 10.8 fL (9.4-12.3); Monocytes Absolute Auto 1.2 X10*3/uL (0.1-1.2); Monocytes Percent Auto 8.5 % (2-11); Neutrophils Absolute Auto 8.7 x10*3/uL (2.0-8.3); Neutrophils Percent Auto 61.1 % (45-73); Platelet Count 377 X10*3/uL (160-400); Red Blood Count 4.48 X10*6/uL (4.20-5.50); Red Cell Distribution Width 12.6 % (11.0-16.0); White Blood Count 14.3 X10*3/uL (4.8-10.8)
[2022-07-04 10:36] LABS: Alanine Aminotransferase 15 U/L (0-31); Alkaline Phosphatase 87 U/L (39-117); Anion Gap 13 (12-20); Aspartate Amino Transferase 19 U/L (5-31); Bilirubin Total 0.4 mg/dL (0.0-1.0); Blood Urea Nitrogen 7 mg/dL (9-16); Calcium 9.2 mg/dL (8.4-10.2); Carbon Dioxide 23 mmol/L (22-29); Chloride 106 mmol/L (96-108); Cholesterol 213 mg/dL; Estimated Glomerular Filt Rate > 60; Glucose Random 100 mg/dL (60-115); HDL Cholesterol 49 mg/dL; LDL Cholesterol Calculated 140 mg/dl; Potassium 4.3 mmol/L (3.3-5.1); Sodium 138 mmol/L (135-145); Total Protein 7.2 g/dL (6.5-8.0); Triglycerides 123 mg/dL
[2022-07-04 10:38] LABS: Thyroid Stimulating Hormone 0.34 uIU/mL (0.32-4.0)
== END 2022-07-04 08:42 | disposition home or self-care (01) ==
LOC: HO.LAB 08:41
PROVIDERS: PCP Internal Medicine; Visit Provider Internal Medicine
DX: Z00.00 Encounter for general adult medical examination without abnormal findings (principal); E03.8 Other specified hypothyroidism; F32.9 Major depressive disorder, single episode, unspecified; N30.00 Acute cystitis without hematuria
CPT/HCPCS: 36415; 80053; 80061; 84443; 85025

== ENCOUNTER 2023-04-03 09:22 | Outpatient (REF) | payer OTHER, SELFPAY ==
[2023-04-03 10:39] LABS: Alanine Aminotransferase 12 U/L (0-31); Albumin Level 4.1 g/dL (3.5-5.0); Alkaline Phosphatase 89 U/L (39-117); Anion Gap 13 (12-20); Aspartate Amino Transferase 19 U/L (5-31); Bilirubin Total 0.3 mg/dL (0.0-1.0); Blood Urea Nitrogen 10 mg/dL (9-16); Calcium 9.3 mg/dL (8.4-10.2); Carbon Dioxide 24 mmol/L (22-29); Chloride 106 mmol/L (96-108); Cholesterol 202 mg/dL (<200); Estimated Glomerular Filt Rate > 60; Glucose Random 102 mg/dL (60-115); HDL Cholesterol 44 mg/dL (>40); LDL Cholesterol Calculated 136 mg/dL (<100); Potassium 4.3 mmol/L (3.3-5.1); Sodium 139 mmol/L (135-145); Triglycerides 112 mg/dL (<150)
[2023-04-03 10:55] LABS: Thyroid Stimulating Hormone 2.94 uIU/mL (0.32-4.0)
== END 2023-04-03 09:23 | disposition home or self-care (01) ==
LOC: HO.LAB 09:22
PROVIDERS: PCP Internal Medicine; Visit Provider Internal Medicine
DX: E03.8 Other specified hypothyroidism (principal); E78.00 Pure hypercholesterolemia, unspecified; N30.00 Acute cystitis without hematuria
CPT/HCPCS: 36415; 80053; 80061; 84443

== ENCOUNTER 2023-07-20 08:19 | Outpatient (REF) | payer OTHER, SELFPAY ==
[2023-07-20 08:44] LABS: MANUAL DIFF FLAG NO
[2023-07-20 09:25] LABS: Basophils Absolute Auto 0.1 X10*3/uL (0.0-0.2); Basophils Percent Auto 0.8 % (0-2); Eosinophils Absolute Auto 0.4 X10*3/uL (0.0-0.4); Eosinophils Percent Auto 3.2 % (0-4); Hematocrit 43.6 % (37.0-47.0); Hemoglobin 14.3 g/dl (12.0-16.0); Imm Gran Abs Auto 0.06 X10*3/uL (0.00-0.03); Imm Gran Pct Auto 0.5 % (0.0-0.4); Lymphocytes Absolute Auto 3.7 X10*3/uL (1.2-4.9); Lymphocytes Percent Auto 28.1 % (20-40); Mean Corpuscular HGB Conc 32.8 g/dl (31.0-35.0); Mean Corpuscular Hemoglobin 30.8 pg (27.0-33.0); Mean Platelet Volume 10.2 fL (9.4-12.3); Monocytes Absolute Auto 1.1 X10*3/uL (0.1-1.2); Neutrophils Absolute Auto 7.9 x10*3/uL (2.0-8.3); Neutrophils Percent Auto 59.4 % (45-73); Platelet Count 469 X10*3/uL (160-400); Red Blood Count 4.64 X10*6/uL (4.20-5.50); Red Cell Distribution Width 13.2 % (11.0-16.0); White Blood Count 13.3 X10*3/uL (4.8-10.8)
[2023-07-20 10:02] LABS: Alanine Aminotransferase 13 U/L (0-31); Alkaline Phosphatase 87 U/L (39-117); Anion Gap 12 (12-20); Aspartate Amino Transferase 14 U/L (5-31); Bilirubin Total 0.3 mg/dL (0.0-1.0); Blood Urea Nitrogen 13 mg/dL (9-16); Calcium 9.3 mg/dL (8.4-10.2); Carbon Dioxide 24 mmol/L (22-29); Chloride 109 mmol/L (96-108); Cholesterol 204 mg/dL (<200); Estimated Glomerular Filt Rate > 60; Glucose Random 99 mg/dL (60-115); HDL Cholesterol 44 mg/dL (>40); LDL Cholesterol Calculated 144 mg/dL (<100); Potassium 4.2 mmol/L (3.3-5.1); Sodium 141 mmol/L (135-145); Total Protein 7.6 g/dL (6.5-8.0); Triglycerides 82 mg/dL (<150)
[2023-07-20 10:12] LABS: Ferritin 56 ng/mL (10-250); Thyroid Stimulating Hormone 0.75 uIU/mL (0.32-4.0)
== END 2023-07-20 08:20 | disposition home or self-care (01) ==
LOC: HO.LAB 08:19
PROVIDERS: PCP Internal Medicine; Visit Provider Internal Medicine
DX: Z00.01 Encounter for general adult medical examination with abnormal findings (principal); E03.8 Other specified hypothyroidism; E78.00 Pure hypercholesterolemia, unspecified; F32.9 Major depressive disorder, single episode, unspecified; I10 Essential (primary) hypertension; N92.4 Excessive bleeding in the premenopausal period; Z72.0 Tobacco use
CPT/HCPCS: 36415; 80053; 80061; 82728; 84443; 85025

== ENCOUNTER 2023-09-20 08:00 | Outpatient (REF) | payer OTHER, SELFPAY ==
[2023-09-20 11:06] LABS: Bacterial Vaginosis PCR POSITIVE (Negative); Candida Group PCR NOT DETECTED (Not Detect); Candida glab krusei PCR NOT DETECTED (Not Detect); Trichomonas vaginalis PCR DETECTED (Not Detect)
[2023-09-20 11:39] LABS: CT PCR NOT DETECTED (Not Detect.); NG PCR NOT DETECTED (Not Detect.)
[2023-09-28 08:48] LABS: HPV mRNA E6/E7 rflx Not Detected (Not Detected)
== END 2023-09-20 08:01 | disposition home or self-care (01) ==
LOC: HO.LNP 08:00
PROVIDERS: PCP Internal Medicine; Visit Provider Advanced Practice Midwife
DX: N92.0 Excessive and frequent menstruation with regular cycle (principal); R35.0 Frequency of micturition
CPT/HCPCS: 0352U; 0353U; 81025; 87086; 87088; 87624; 88142

== ENCOUNTER 2023-09-20 08:00 | Outpatient (AMB) | payer OTHER, SELFPAY ==
[2023-09-20 08:23] VITALS: BP 92/70; BMI 43.4
--- NOTE | 2023-09-20 08:23 | MHC.OFFVIS ---
Vital Signs 09/20/23 08:23 Height 4 ft 11 in Weight 215 lb BMI 43.4 BP 92/70 Intake Visit Reasons: Menorrhagia/referral Intake Note: Having heavy menses and having pain like if she was a teenager again , is having frequency in urination feels like she doesn't empty Para Educator Required: No Information Interpreted: non-clinical & clinical Bottom Hoop Driver: Bottom Hoop Driver Present (Kaseyyn) Allergies No Known Allergies Allergy (Verified 09/20/23 08:28) Is last menstrual period known: Yes Last menstrual period: 09/07/23 Post menopausal: No HPI Comments Details: Patient is here today for a referral for heavy menstrual bleeding. Cycles are regular, heavy 4/5 days with cramping. She reports cycles have been heavier since age 42. Her last CBC and TSH are normal range 08/04/2023. History of tubal ligation. She is reports some frequency of urination at times. Last Pap 2016. [facility] Medical History (Updated 09/20/23 @ 09:05 by Tasha Flores CNM) Hypothyroidism No known health problems Surgical History (Updated 09/20/23 @ 08:29 by JEFFERY Smith) Hx of tubal ligation Hx of section Family History (Updated 09/20/23 @ 08:30 by JEFFERY Smith) Sister SLE (systemic lupus erythematosus related syndrome) Paternal Aunt Ovarian cancer Social History (Updated 09/20/23 @ 08:30 by JEFFERY Smith) Household Members: Children Housing: House Do you presently have visiting nurse or other home services: No Alcohol intake: current Alcohol intake frequency: holidays/special occasions only Patient Tobacco Use Status: Current everyday Tobacco user Tobacco use type: Cigarette Cigarettes Per Day: 3 Years Smoked: 2 service: No Current occupational status: employed Female Reproductive History Menstrual Age of Menarche: 15 Duration of menses: 3-5 days Date of last menstrual period: 09/07/23 control method: permanent sterilization Total pregnancies: 5 Full term: 4 Number of Living Children: 4 Ab induced: 1 Date of last pap smear: 08/03/15 (negative) History of abnormal pap smear: Yes (2013 ASCUS, 2001 LGSIL) Review of Systems Const All systems reviewed & are unremarkable except as noted in HPI and below Physical Exam Vital Signs: Last Vital Signs BP 92/70 09/20/23 08:23 BMI result Body Mass Index 43.4 Const General: cooperative, healthy appearing and no acute distress Orientation/consciousness: patient oriented x3 GI Inspection: Yes normal to inspection Palpation (GI): Soft to palpation and Other GI palpation findings present (Nontender) Rectal Exam - Female: visual inspection normal General: Yes bladder normal to palpation External Female Exam: normal appearance of the urethra Speculum Exam - Vagina: normal appearance of the vagina, normal palpation and normal vaginal discharge Speculum Exam - Cervix: normal appearance of the cervix and normal palpation Bimanual exam- vagina & uterus: normal bimanual exam, normal palpation, uterine size normal, bladder normal to palpation, normal palpation, uterine shape normal and non-tender Bimanual Exam- Adnexa, other: normal adnexae Neuro General: patient oriented x3 Assessment & Plan Assessment & Plan (1) Heavy menses: Code(s): N92.0 - Excessive and frequent menstruation with regular cycle Category: Medical Qualifiers: Menorrhagia type: with regular cycle Qualified Code(s): N92.0 - Excessive and frequent menstruation with regular cycle (2) Frequency of urination: Code(s): R35.0 - Frequency of micturition (3) Painful menstruation: Code(s): N94.6 - Dysmenorrhea, unspecified Plan Discussed: Plan of care to include workup for heavy menstrual bleeding with ultrasound, cervical cultures, an endometrial biopsy. Urinalysis culture to be obtained, Pap smear obtained today. All of her questions and concerns were addressed to the best of my ability and shared decision making. She is agreeable to the plan of care. This note is constructed using voice recognition software. While every effort has been made to ensure accuracy, chemical lab supervisor errors may have been included. Orders: Orders US pelvic and transvaginal Today N92.0 - Excessive and frequent menstruation with regular cycle Medications: Discontinued ibuprofen Discontinued Reason: Patient no longer taking 600 mg PO Q8H PRN 20 tabs 0RF pain prednisone Discontinued Reason: Patient no longer taking 20 mg PO DAILY 7 tabs 0RF Magic Mouthwash Diphen/Lido/Antacid 1:1:1 Lidocaine Viscous 2 % 80mL; diphenhydramine 12.5 mg/5 mL 80mL; aluminum-mag hydrox-simeth [id number]/5mL 80mL Discontinued Reason: Patient no longer taking 10 mL PO TIDAC PRN 240 mL 0RF pain in mouth Coding Level of Care Code New Pt Level 4 (76003) Diagnoses Menorrhagia with regular cycle N92.0 Menorrhagia type: with regular cycle Frequency of urination R35.0 Painful menstruation N94.6
== END 2023-09-20 09:03 | disposition home or self-care (01) ==
LOC: HO.HWSW 08:00
PROVIDERS: PCP Internal Medicine; Visit Provider Advanced Practice Midwife
DX: N92.0 Excessive and frequent menstruation with regular cycle (principal); R35.0 Frequency of micturition; N94.6 Dysmenorrhea, unspecified
CPT/HCPCS: 99204

== ENCOUNTER 2024-03-12 06:24 | Day surgery (SDC) | payer OTHER, SELFPAY ==
[2024-03-10 11:08] VITALS: BMI 44.4
[2024-03-12 06:36] VITALS: BMI 44.4
[2024-03-12] MEDS: Lactated Ringers 1,000 ML 100 ML IVCONT (06:41)
[2024-03-12 06:55] VITALS: BP 136/87; PULSE 99; RESP 18; TEMP 36.7; O2SAT 98
--- NOTE | 2024-03-12 07:25 | P.CONAN_ITS ---
Documented by User: Shannon Thacker NP 03/11/24 09:39 HPI - Anesthesia Eval Consult details Narrative: 48yo F for Colonoscopy PMFSH Active Problems Active Problems: All Active Problems Heavy menses (Acute) Skin rash (Acute) Swollen lip (Acute) Ecchymosis (Acute) UTI (urinary tract infection) (Acute) Past Medical History Medical History (Updated 03/12/24 @ 06:38 by Esme Bass RN) Hypothyroidism Family History Family History (Updated 09/20/23 @ 08:30 by JEFFERY Smith) Sister SLE (systemic lupus erythematosus related syndrome) Paternal Aunt Ovarian cancer Surgical History Surgical History Hx of tubal ligation Hx of section Social History Social History (Updated 09/20/23 @ 08:30 by JEFFERY Smith) Household Members: Children Housing: House Are you a primary healthcare representative to a significant other at home: No Do you presently have visiting nurse or other home services: No Alcohol intake: current Alcohol intake frequency: holidays/special occasions only Patient Tobacco Use Status: Current everyday Tobacco user Tobacco use type: Cigarette Cigarettes Per Day: 3 Years Smoked: 2 Smoked in Last 30 Days: Yes Patient Interested in Nicotine Replacement: No Substance Use Frequency: Daily Have you been hit, kicked, punched, or otherwise hurt by someone within the past year? If so, by whom?: No Are you DNR?: No Advance Directives: No Advance Directives Information Provided: Yes Recently lost weight without trying: No Nutrition Risks: No Nutritional Risk FDLMP: finished Sunday service: No Current occupational status: employed Meds Allergies Allergy/AdvReac Type Severity Reaction Status Date / Time sulfamethoxazole Allergy Swelling Verified 03/12/24 06:38 [From Bactrim] trimethoprim [From Bactrim] Allergy Swelling Verified 03/12/24 06:39 Home Medications ?Medication ?Instructions ?Recorded ?Confirmed ?Last Taken ?Type levothyroxine 125 mcg tablet 125 mcg PO DAILY 09/20/23 03/12/24 03/12/24 History Exam Height,Weight and Vital Signs: Height 4 ft 11 in Weight 99.79 kg Assessment and Plan Assessment Anesthesia Assessment: Chart Reviewed Documented by User: Joie Hawley DO 03/12/24 07:35 HPI - Anesthesia Eval Consult details Narrative: 48yo F for Colonoscopy. Smoker - marijuana and cigarettes. PMFSH Past Medical History Medical History (Updated 03/12/24 @ 06:38 by Esme Bass RN) Hypothyroidism Family History Family History (Updated 09/20/23 @ 08:30 by JEFFERY Smith) Sister SLE (systemic lupus erythematosus related syndrome) Paternal Aunt Ovarian cancer Family history of problems with anesthesia: No Surgical History Surgical History Hx of tubal ligation Hx of section History of Problems with Anesthesia: No Social History Social History (Updated 09/20/23 @ 08:30 by JEFFERY Smith) Household Members: Children Housing: House Are you a primary healthcare representative to a significant other at home: No Do you presently have visiting nurse or other home services: No Alcohol intake: current Alcohol intake frequency: holidays/special occasions only Patient Tobacco Use Status: Current everyday Tobacco user Tobacco use type: Cigarette Cigarettes Per Day: 3 Years Smoked: 2 Smoked in Last 30 Days: Yes Patient Interested in Nicotine Replacement: No Substance Use Frequency: Daily Have you been hit, kicked, punched, or otherwise hurt by someone within the past year? If so, by whom?: No Are you DNR?: No Advance Directives: No Advance Directives Information Provided: Yes Recently lost weight without trying: No Nutrition Risks: No Nutritional Risk FDLMP: finished Sunday service: No Current occupational status: employed Meds Allergies Allergy/AdvReac Type Severity Reaction Status Date / Time sulfamethoxazole Allergy Swelling Verified 03/12/24 06:38 [From Bactrim] trimethoprim [From Bactrim] Allergy Swelling Verified 03/12/24 06:39 Home Medications ?Medication ?Instructions ?Recorded ?Confirmed ?Last Taken ?Type levothyroxine 125 mcg tablet 125 mcg PO DAILY 09/20/23 03/12/24 03/12/24 History Exam Exam Date and Time: 03/12/2425 Height,Weight and Vital Signs: Height 4 ft 11 in Weight 99.79 kg Vital Signs Temperature 98.1 F 03/12/24 06:55 Pulse Rate 99 03/12/24 06:55 Respiratory Rate 18 03/12/24 06:55 Blood Pressure 136/87 03/12/24 06:55 Pulse Oximetry 98 03/12/24 06:55 Oxygen Delivery Method Room Air 03/12/24 06:55 Temperature 98.1 F 03/12/24 06:55 Pulse Rate 99 03/12/24 06:55 Respiratory Rate 18 03/12/24 06:55 Blood Pressure 136/87 03/12/24 06:55 Pulse Oximetry 98 03/12/24 06:55 Oxygen Delivery Method Room Air 03/12/24 06:55 Airway Mallampati Class: I TM Dist: >3cm Neck ROM: Full Loose/Missing/Broken Teeth: No (patient denies any loose or broken teeth) Heart: S1S2 Lungs: CTAB Assessment and Plan Assessment Anesthesia Assessment: Anesthesia Plan Discussed and Chart Reviewed Final Anesthetic Review Family History of Problems with Anesthesia: No History of Problems with Anesthesia: No NPO: Yes ASA Class: II Final Preanesthetic Review: No Changes in Pt Med Stat, Meds/Allgs Chart Reviewed, Consent Obtained/Reviewed and Anes Risks/Benef Reviewed Patient Risk: Low Procedure Risk: Low Anesthetic Plan Anesthetic Plan: MAC: and Agree w/ Assess. and Plan Disposition: Standard PACU
[2024-03-12 08:29] VITALS: BP 114/72; PULSE 82; RESP 16; TEMP 36.1; O2SAT 97
--- NOTE | 2024-03-12 08:33 | P.BOP_ITS ---
Brief Operative Note Date of Service: 03/12/24 Pre-op diagnosis: Screening Post-op diagnosis: other (Internal hemorrhoids) Procedure: Colonoscopy to the cecum Surgeon: Giovanni Rasmussen MD Anesthesia: MAC Was an Wood Sash And Frame Carpenter used for this Procedure?: No Estimated blood loss (mL): 0 Pathology: none sent Condition: stable Disposition: PACU
[2024-03-12 08:44] VITALS: BP 122/89; PULSE 73; RESP 20; TEMP 36.4; O2SAT 99
--- NOTE | 2024-03-12 08:56 | OP_ITS ---
DATE OF SERVICE: 03/12/2024 SURGEON: Giovanni Rasmussen MD INDICATIONS: The patient presents for evaluation of colorectal cancer screening. Full consent has been obtained from her for this, including risks of bleeding and perforation. PREOPERATIVE DIAGNOSIS: Colorectal cancer screening. POSTOPERATIVE DIAGNOSIS: PROCEDURE PERFORMED: Colonoscopy to cecum. ESTIMATED BLOOD LOSS: COMPLICATIONS: ANESTHESIA: Medication used, monitored anesthesia care. ASSISTANTS: SPECIMENS: POSTOPERATIVE DIAGNOSES: Colorectal cancer screening, internal hemorrhoids. DESCRIPTION OF PROCEDURE: The patient was placed in the left lateral decubitus position. The digital rectal exam revealed no abnormalities. The Olympus video pediatric colonoscope was entered into the rectum and advanced to the cecum with the assistance of abdominal wall pressure. Once in the cecum, I did identify normal-appearing cecal pouch with appendiceal orifice and a normal-appearing ileocecal valve. The entire cecum was well visualized and appeared normal. The scope was then slowly withdrawn assessing all mucosal surfaces carefully. Preparation was very good throughout the colon, but did require some suction and irrigation. I did not visualize any sign of polyps, colitis, nor angiodysplasia. In the rectum, scope was retroflexed, visualizing some internal hemorrhoids, but no other pathology. The rectal mucosa appeared normal. The scope was straightened and withdrawn from the patient. She tolerated the procedure well and was returned to recovery area in stable condition. IMPRESSION: Internal hemorrhoids. PLAN: Given her negative exam and no family history of colon cancer, I would recommend a followup coloscopy in 10 years for further screening. She will otherwise see me on a p.r.n. basis. Giovanni Rasmussen MD RMW/MODL / [id number]
== END 2024-03-12 08:57 | disposition home or self-care (01) ==
PROVIDERS: PCP Internal Medicine; Visit Provider Internal Medicine
PROC: 0DJD8ZZ Inspection of Lower Intestinal Tract, Via Natural or Artificial Opening Endoscopic (ICD-10-PCS; CPT 45378; principal; 2024-03-12 07:30)
DX: Z12.11 Encounter for screening for malignant neoplasm of colon (principal); K64.8 Other hemorrhoids; E03.9 Hypothyroidism, unspecified; F17.210 Nicotine dependence, cigarettes, uncomplicated; Z79.899 Other long term (current) drug therapy
CPT/HCPCS: 45378; J2003; J2704

== ENCOUNTER 2024-08-20 11:32 | Outpatient (REF) | payer OTHER, SELFPAY ==
--- OUTSIDE RECORDS SUMMARY | 2024-08-20 13:02 | XMS_ITS ---
Author Organization [facility] Address [address] [place] [id number] Care Team Providers Care Salesperson Wigs Name Role Phone Karen Berrios Primary Care Provider Unavailab Giovanni Haro [phone] REASON FOR VISIT screening Encounters Encounter Location Date Provider Diagnosis [facility] [address], [place] [id number] 03/12/2024 Giovanni Rasmussen Colon cancer scree yesenia Z12.11 and Other hemorrhoids K64.8 Assessments Encounter Date Diagnosis (ICD Code) Assessment Notes Treatment Notes Treatment Clinical Notes Section Notes 03/12/2024 Colon cancer screening (ICD-10 - Z12.11) 03/12/2024 Other hemorrhoids (ICD-10 - K64.8) Plan Of Treatment No Information Progress Notes * JAVIER ATKINSONDOB:1975 (48 yo F)Acc No.[id number]:03/12/2024 COLON WITH MAC Patient:?JAVIER ATKINSON Provider:?Giovanni Rasmussen MD :1975???Age:48 Y???Sex:Female D ate:03/12/2024 Address[address] [id number] Pcp:Karen Berrios Subjective: * Chief Complaints: * ???1. Screening. * Medical History:? Objective: * Vitals:? Assessment: * Assessment: 1.?Colon cancer screening - Z12.11 (Primary)???2.?Other hemorrhoids - K64.8??? Plan: * Treatment: * Procedure Codes:?18499 DIAGN OSTIC COLONOSCOPY, Modifiers: 33 * * The named appointment provid er may or may not be the originator of this progress note, and it is not deemed complete until electronically signed by the appointment provider. Sign off status: Pending * Provider:?Giovanni Rasmussen MD Date:? 024 Generated for Katty dorado/Juju/Erica on:?08/20/2024 01:02 PM EDT
--- OUTSIDE RECORDS SUMMARY | 2024-08-20 13:02 | XMS_ITS ---
Author Organization [facility] Address [address] [place] [phone] Care Team Providers Care Dean Name Role Phone Karen Berrios Primary Care Provider Unavailab Giovanni Haro [phone] REASON FOR VISIT will prior auth be needed? Encounters Encounter Location Date Provider Diagnosis [facility] [address] [place] [phone] 12/06/2023 Giovanni Rasmussen Plan Of Treatment No Information Progress Notes * JAVIER ATKINSONDOB:1975 (47 yo F)Acc No.[id number]:12/06/2023 Patient:?JAVIER ATKINSON :1975???Age:47 Y???Sex:Female Address:[address] [place], [address] * true * Date:? Generated for Morenai estrada/Juju/eTransmitting on:?08/20/2024 01:01 PM EDT
--- OUTSIDE RECORDS SUMMARY | 2024-08-20 13:02 | XMS_ITS ---
Author Organization [facility] Address [address] [place] [address] Care Team Providers Care Squad Sergeant Name Role Phone Karen Berrios Primary Care Provider Unavailab Giovanni Haro [phone] Encounters Encounter Location Date Provider Diagnosis [facility] [address] [place] [phone] 01/23/2024 Giovanni Rasmussen Plan Of Treatment No Information Progress Notes * JAVIER ATKINSONDOB:1975 (48 yo F)Acc No.[id number]:01/23/2024 Patient:?JAVIER ATKINSON :1975???Age:48 Y???Sex:Female Address:[address] , [place], [address] * true * Date:? Generated for Katty dorado/Juju/eTransmitting on:?08/20/2024 01:02 PM EDT
--- OUTSIDE RECORDS SUMMARY | 2024-08-20 13:02 | XMS_ITS | Patient Health Record ---
Author Organization [facility] Address [address] [place] [address] Care Team Providers Care Robotics Specialist Name Role Phone CarlossandraDoroteoKaren Primary Care Provider Giovanni Dinh Unavailable [phone] Allergies Allergen (clinical drug ingredient) Drug/Non Drug Allergy documented on EMR Reaction Allergy Type Onset Date Status sulfamethoxazole / trimethoprim Bactrim Unknown Drug Allergy Active Reason For Referral No Information Medications Medication SIG (Take, Route, Frequency, Duration) Notes Start Date End Date Status Levothyroxine Sodium 125 MCG TAKE 2 TABL ETS BY MOUTH EVERY DAY Oral for 90 Active Social History Tobacco Use: Social History Observation Description Date Details (start date - stop date) Current Smoker NA - NA Tobacco Use/Smoking Question Answer Notes Patient is a current smoker How often do you smoke cigarettes? every day How many cigarettes a day do you smoke? 5 or les s Alcohol Screen Question Answer Notes Did you have a drink contain ing alcohol in the past year? Yes How often did you have a dri nk containing alcohol in the past year? 2 to 4 times a month (2 points) How many drinks did you have on a typical day when you were drinking in the past year? 1 or 2 drinks (0 point) Points 2 Interpretation Negative Section Notes: Smoker 2 or 3 cigs QD; no si g alcohol Problems Problem Type SNOMED Code ICD Code Onset Dates Problem Status W/U Status Risk Notes Problem Colon cancer screening (Z12.11) Active confirmed Problem Pre-procedure evaluation check (960288097) Encounter for other preprocedural examination (Z01.818) Active confirmed Vital Signs Blood pressure diastolic 00 mm Hg 12/06/2023 Height 4 ft 11.5 in in 12/06/2023 Blood pressure systolic 00 mm Hg 12/06/2023 Weight 220 lbs 12/06/2023 BMI 43.69 kg/m2 12/06/2023 Encounters Encounter Location Date Provider Diagnosis [facility] Outpatient [address], [place] [phone] 03/12/2024 Giovanni Rasmussen Colon cancer screeni ng Z12.11 and Other hemorrhoids K64.8 [facility] [address] [place] [phone] 12/06/2023 Giovanni Rasmussen Colon cancer screeni ng Z12.11 and Encounter for other preprocedural examination Z01.818 [facility] [address] [place] [phone] 12/06/2023 Giovanni Rasmussen [facility] [address] [place] [phone] 01/23/2024 Giovanni Rasmussen Assessments Encounter Date Diagnosis (ICD Code) Assessment Notes Treatment Notes Treatment Clinical Notes Section Notes 03/12/2024 Colon cancer screening (ICD-10 - Z12.11) 03/12/2024 Other hemorrhoids (ICD-10 - K64.8) 12/06/2023 Colon cancer screening (ICD-10 - Z12.11) Overall, Stef appears quite well and is not having any particularly worrisome GI complaints. Given her age and excellent clinical appearance, I did recommend a colonoscopy for screening purposes. We did review the rationale for this in regard to colon cancer prevention. Full consent was obtained for this, including risks of bleeding and perforation. The procedure will be done monitored anesthesia care. Jenae was comfortable with this plan. Thank again for allowing me to participate in Jenae's care. I shall continue to keep you advised of her progress. 12/06/2023 Encounter for other preprocedural examination (ICD-10 - Z01.818) Overall, Stef appears quite well and is not having any particularly worrisome GI complaints. Given her age and excellent clinical appearance, I did recommend a colonoscopy for screening purposes. We did review the rationale for this in regard to colon cancer prevention. Full consent was obtained for this, including risks of bleeding and perforation. The procedure will be done monitored anesthesia care. Jenae was comfortable with this plan. Thank again for allowing me to participate in Jenae's care. I shall continue to keep you advised of her progress. Plan Of Treatment Future Test Test Name Order Date COLONOSCOPY 12/06/2023 Insurance Providers Payer Name Payer Address Payer Phone Subscriber Number Group Number Insured Name Patient Relationship to Insured Coverage Start Date Coverage End Date [employer] [address] [address] [place] [address] [id number] JENAE ATKINSON Self - patient is the insured Medical (General) History Medical History History ICD Code Hypothyroid Denies [place],DM,CVA,Lung disease,renal dise ase Surgical History Surgery Date(Month/Year) 1995 Tubal ligation 2005
[2024-08-20 13:03] LABS: Alanine Aminotransferase 14 U/L (0-31); Albumin Level 3.7 g/dL (3.5-5.0); Alkaline Phosphatase 85 U/L (39-117); Anion Gap 10 (12-20); Aspartate Amino Transferase 28 U/L (5-31); Bilirubin Total 0.3 mg/dL (0.0-1.0); Blood Urea Nitrogen 9 mg/dL (9-16); Calcium 8.8 mg/dL (8.4-10.2); Carbon Dioxide 21 mmol/L (22-29); Chloride 109 mmol/L (96-108); Cholesterol 196 mg/dL (<200); Estimated Glomerular Filt Rate > 60; Glucose Random 99 mg/dL (60-115); HDL Cholesterol 41 mg/dL (>40); LDL Cholesterol Calculated 131 mg/dL (<100); Potassium 4.3 mmol/L (3.3-5.1); Sodium 136 mmol/L (135-145); Total Protein 7.2 g/dL (6.5-8.0); Triglycerides 122 mg/dL (<150)
[2024-08-20 13:16] LABS: Thyroid Stimulating Hormone 1.29 uIU/mL (0.32-4.0)
== END 2024-08-20 11:33 | disposition home or self-care (01) ==
LOC: HO.LAB 11:32
PROVIDERS: PCP Internal Medicine; Visit Provider Internal Medicine
DX: E78.00 Pure hypercholesterolemia, unspecified (principal); E89.0 Postprocedural hypothyroidism; I10 Essential (primary) hypertension; Z00.01 Encounter for general adult medical examination with abnormal findings; Z72.0 Tobacco use
CPT/HCPCS: 36415; 80053; 80061; 84443

== ENCOUNTER 2024-10-15 13:25 | Outpatient (REF) | payer OTHER, SELFPAY ==
--- OUTSIDE RECORDS SUMMARY | 2024-10-15 14:02 | XMS_ITS | Patient Health Record ---
Author Organization [facility] Address [address] [place] [address] Care Team Providers Care Florist Manager Name Role Phone Carlossandra Karen Primary Care Provider UnavailGiovanni Nino Unavailable [phone] Allergies Allergen (clinical drug ingredient) Drug/Non Drug Allergy documented on EMR Reaction Allergy Type Onset Date Status Bactrim Unknown Drug Allergy Active Reason For [...] (Z12.11) Active confirmed Problem Pre-procedure evaluation check (046274190) Encounter for other preprocedural examination (Z01.818) Active confirmed Vital Signs Blood pressure diastolic 00 mm Hg 12/06/2023 Height 4 ft 11.5 in in 12/06/2023 Blood pressure systolic 00 mm Hg 12/06/2023 Weight 220 lbs 12/06/2023 BMI 43.69 kg/m2 12/06/2023 Encounters Encounter Location Date Provider Diagnosis [facility] [address] [place], [place] [phone] 03/12/2024 Giovanni Rasmussen Colon cancer screeni ng Z12.11 and Other hemorrhoids K64.8 [facility] [address] [place] [phone] 12/06/2023 Giovanni Rasmussen Colon cancer screeni ng Z12.11 and Encounter for other preprocedural examination Z01.818 [facility] [address] [place] [phone] 12/06/2023 Giovanni Rasmussen [facility] [address] [place] [phone] 01/23/2024 Giovanni Rasmussen Assessments Encounter Date Diagnosis [...] End Date [employer] [address] [address] [address] [place] [address] [id number] JENAE ATKINSON Self - patient is the insured Medical (General) History Medical History History ICD Code Hypothyroid Denies HI,DM,CVA,Lung disease,renal dise ase Surgical History Surgery Date(Month/Year) 1995 Tubal ligation 2005
== END 2024-10-15 13:26 | disposition home or self-care (01) ==
LOC: HO.MAMMO 13:25
PROVIDERS: PCP Internal Medicine; Visit Provider Internal Medicine
DX: Z12.31 Encounter for screening mammogram for malignant neoplasm of breast (principal)
CPT/HCPCS: 77063; 77067

== ENCOUNTER → 2024-10-15 13:45 | Outpatient (BNV) | payer OTHER, SELFPAY | PROVIDERS: PCP Internal Medicine; Visit Provider Internal Medicine | DX: Z12.31 Encounter for screening mammogram for malignant neoplasm of breast (principal) | CPT/HCPCS: 77063; 77067 ==